=== PATIENT | female | born 1940 | race Caucasian/White ===

== ENCOUNTER 2024-10-18 10:15 | Outpatient (AMB) | payer MEDICARE, OTHER, SELFPAY ==
--- NOTE | 2024-10-18 10:30 | HO.NEPHOV_ITS ---
Vital Signs 10/18/24 10:37 Height 5 ft Weight 167 lb BMI 32.6 BP 140/60 H Blood Pressure Location Lt brachial Position Sitting Pulse 65 Pulse Source Pulse Oximeter Pulse Oximetry (%) 95 Oxygen Delivery Method Room Air Intake Visit Reasons: ENP: CKD STG4/ Conf Webfed Offset Press Operator Required: No Accompanied by: Daughter Allergies atorvastatin [From Lipitor] Allergy (Verified 10/16/24 09:20) Unknown lovastatin [From Mevacor] Allergy (Verified 10/16/24 09:20) Unknown Sulfa (Sulfonamide Antibiotics) Allergy (Verified 10/16/24 09:20) Unknown HPI Comments Details: I had the privilege of seeing Sadaf for transfer of her renal care. 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 She has H/O incomplete emptying of her bladder. Her blood pressure control has b een fair on current medications. She monitors her BP at home. She recently had renal USS which showed bilateral simple appearing renal cysts with slight increase in size of the cyst on the left. Her recent serum creatinine has been 2.1. She denies CAD, CHF, PAD or known YOLANDA. She does not have any urinary symptoms, worsening edema, nausea, vomiting or diarrhea. She feels increasingly tired. There were no other systemic complaints at the time of the office visit. 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 Surgical History H/O thyroidectomy H/O colonoscopy History of knee replacement Family History Mother Malignant tumor of breast Father Heart attack Brother Diabetes Hypertension Lymphoma Social History (Updated 10/18/24 @ 10:32 by Sujatha Sher MA) Alcohol intake: never Patient Tobacco Use Status: Never used Tobacco Review of Systems Const All systems reviewed & are unremarkable except as noted in HPI and below Physical Exam Vital Signs: Last Vital Signs Pulse 65 10/18/24 10:37 BP 140/60 H 10/18/24 10:37 Pulse Ox 95 10/18/24 10:37 Oxygen Delivery Method Room Air 10/18/24 10:37 BMI result Body Mass Index 32.6 Const General: comfortable and no acute distress Orientation/consciousness: patient oriented x3 HEENT Head: Yes normocephalic Mouth: Normal oral and palatal mucosa present Eyes EOM: EOMs intact bilaterally Neck Neck: Yes supple Resp Auscultation: clear to auscultation bilaterally Cardio Jugular venous distension: no JVD Rate: regular rate GI Palpation (GI): Soft to palpation Auscultation: normal bowel sounds General: Yes no CVA tenderness Back/Spine/Pelvis Back: no CVA tenderness Skin General skin exam: no rashes or lesions noted Neuro General: patient oriented x3 and moves all extremities Extrem General: Yes no pedal edema Assessment & Plan Assessment & Plan (1) Essential (primary) hypertension: Code(s): I10 - Essential (primary) hypertension Category: Medical (2) Chronic kidney disease, stage 4 (severe): Code(s): N18.4 - Chronic kidney disease, stage 4 (severe) Category: Medical Plan She currently has a GFR between 25- 30 mls/minute. She thinks her CKD is from hypertension even though she is not sure whether she had kidneys involved from anti phospholipid antibody syndrome. She denies any H/O renal arterial or renal vein thrombosis. She has higher post voidal residual. Her BP needs to be maintained at less than 130/80 mm of Hg. I have started her on Carvedilol. She may be a candidate for SGLT2 i in the future. I have ordered detailed CKD work up for optimization of her medication regimen. She will need a 24 hour urine for creatinine clearance which I plan to arrange with subsequent follow ups. Further management is pending evolving data. Answered her and her daughters questions. Orders: Orders Creatinine 4 Weeks I10 - Essential (primary) hypertension, N18.4 - Chronic kidney disease, stage 4 (severe) Blood Urea Nitrogen 4 Weeks I10 - Essential (primary) hypertension, N18.4 - Chronic kidney disease, stage 4 (severe) Electrolytes 4 Weeks I10 - Essential (primary) hypertension, N18.4 - Chronic kidney disease, stage 4 (severe) Calcium 4 Weeks I10 - Essential (primary) hypertension, N18.4 - Chronic kidney disease, stage 4 (severe) Phosphorus 4 Weeks I10 - Essential (primary) hypertension, N18.4 - Chronic kidney disease, stage 4 (severe) Parathyroid Hormone Intact 4 Weeks I10 - Essential (primary) hypertension, N18.4 - Chronic kidney disease, stage 4 (severe) Immunofixation Pnl, Serum 4 Weeks I10 - Essential (primary) hypertension, N18.4 - Chronic kidney disease, stage 4 (severe) Immunofixation, Random Urine 4 Weeks I10 - Essential (primary) hypertension, N18.4 - Chronic kidney disease, stage 4 (severe) Complement C3 4 Weeks I10 - Essential (primary) hypertension, N18.4 - Chronic kidney disease, stage 4 (severe) Complement C4 4 Weeks I10 - Essential (primary) hypertension, N18.4 - Chronic kidney disease, stage 4 (severe) Proteinase 3 PR3 Antibodies 4 Weeks I10 - Essential (primary) hypertension, N18.4 - Chronic kidney disease, stage 4 (severe) Protein Creatinine Ratio, Ur 4 Weeks I10 - Essential (primary) hypertension, N18.4 - Chronic kidney disease, stage 4 (severe) Myeloperoxidase Antibody 4 Weeks I10 - Essential (primary) hypertension, N18.4 - Chronic kidney disease, stage 4 (severe) Phospholipase A2 Receptor Pnl 4 Weeks I10 - Essential (primary) hypertension, N18.4 - Chronic kidney disease, stage 4 (severe) Medications: New carvedilol must administer with a meal/food 3.125 mg PO BID 60 tabs 3RF Coding Level of Care Code New Pt Level 4 (52695) Diagnoses Essential (primary) hypertension I10 Chronic kidney disease, stage 4 (severe) N18.4
[2024-10-18 10:37] VITALS: BP 140/60; PULSE 65; O2SAT 95; BMI 32.6
--- OUTSIDE RECORDS SUMMARY | 2024-10-18 10:59 | XMS_ITS | Data Portability ---
Author Organization [facility], [address] Address [address] [place] [address] Assessment No assessment recorded. Plan of Treatment Reminders Order Date Submit Date Provider Last Modified By Organization Details Last Modified Time Details Appointments None recorded. Lab None recorded. Referral skidder referral 2022 023 [email or web address] Not available 17:48:09 Procedures None recorded. Surgeries None recorded. Imaging XR, foot, 2 view 2022 023 [facility], [address] [place], [address], 18:09:10 Medication Orders cephalexin 500 mg capsule 2022 023 [id number], [address] [place], [address], 3 09:42:11 Patient TargetsNo targets recorded. Patient InstructionsNo instructions recorded. Reason for Referral Production Consultant Referral for Fore ign body of foot Referring Physician: Arnold Paz, Urgent Care, Encounter Date: 06/12/2023 Results Created Date Observation Date Name Description Value Unit Range Abnormal Flag Note LastModifiedBy Organization Detail LastModifiedTime 06/12/2006/12/2023 XR, foot, 2 view No observ ation record ed. [email or web address] [facility] [address] [place], [address], 06/12/2023 18:21:18 Result Notes None recorded. Problems Name Problem SNOMED Code Status Onset Date Resolution Date Notes Provider Name and Address Organization Details Recorded Time Hyperlipidemia 10295706 Active JYOTI thompson, PA - [facility] 3 16:46:50 Hypertensive disorder 00417013 Active JYOTI thompson, PA - [facility] 3 16:46:58 History of kidney disease 340916977 Active JYOTI thompson PA - [facility] 3 16:47:16 Deep venous thrombosis 093339226 Active JYOTI thompson, PA - [facility] 3 16:48:16 Problem Notes None recorded. Procedures Surgical History Date Name Laterality Status Provider Name and Address Organization Details Recorded Time Knee arthroscopy /surgery completed JYOTI BAR PA - [facility] 06/12/2023 16:47:39 Imaging Results Imaging Date Name Status LastModified by Organiz ation Details LastModified Time 06/12/2023 XR, foot, 2 view [place] [address] [facility] [address] [place] [address], [place], [address], 06/12/2023 18:21:18 Procedure Notes None recorded. Medical Equipment None Reported. Allergies No known drug allergies Medications Name Sig Start Date Stop Date Status Note LastModified by Organization Details LastModified Time amoxicillin 500 mg capsule TAKE 4 CAPSULES BY MOUTH 1 HOUR PRIOR TO DENTAL PROCEDURE 06/12 completed Not Available Not Available Not Available clobetasol 0.05 % topical cream APPLY THIN COAT TO AFFECTED AREA TWICE A DAY active Not Available Not Available No t Available triamcinolo ne acetonide 0.1 % topical cream APPLY A THIN LAYER TO THE AFFECTED AREAS BY TOPICAL ROUTE 2 TIMES PER DAY FOR 2 WEEKS active Not Available Not Available No t Available ciclopirox 8 % topical solution APPLY TO THE AFFECTED AREA(S) TOPICALLY ONCE DAILY PREFERABL Y AT BEDTIME OR 8 HOURS BEFORE WASHING active Not Available Not Available No t Available calcium 500 mg (as calcium carbonate 1,250 mg) tablet TAKE 2 TABLETS BY MOUTH EVERY DAY active Not Available Not Available No t Available amlodipine 10 mg tablet TAKE 1 TABLET BY MOUTH EVERY DAY active Not Available Not Available No t Available cephalexin 500 mg capsule Take 1 capsule 3 times a day by oral route for 10 days. 2022 active Not Available Not Available Not Avai lable warfarin 5 mg tablet TAKE 1 TABLET DIRECTED DEPENDING ON INR RESULT active Not Available Not Available No t Available Unithroid 75 mcg tablet TAKE 1 TABLET BY MOUTH ONCE DAILY active Not Available Not Available No t Available calcitriol 0.25 mcg capsule TAKE 1 CAPSULE BY MOUTH EVERY DAY active Not Available Not Available No t Available ezetimibe 10 mg tablet TAKE 1 TABLET BY MOUTH EVERY DAY active Not Available Not Available No t Available BinaxNOW COVID-19 Ag Self Test kit Use as Directed on the Package 06/12 completed Not Available Not Available Not Available Vitals Date Recorded Body height Body mass index (BMI) Body weight Oxygen saturation Oxygen saturation in Arterial blood by Pulse oximetry Heart rate Respiratory rate Body temperature Systolic blood pressure Diastolic blood pressure Provider Name and Address Organization Details Last Updated DateTime 3 152.4 cm 31.2 kg/m2 09089.7 8 g 98 % 98 % 78 /min 18 /min 98.1 [degF] 130 mm[Hg] 73 mm[Hg] JYOTI BAR PA - [facility] 16:50:17 Social History Question Answer Notes LastModified by [facility] ion Details LastModified Time Tobacco Smoking Status Never Smoker JYOTI thompson PA [facility] 06/12/2023 16:47:27 What Is Your Level Of Alcohol Consumption? None Information not available 06/12/2023 Do You Use Any Illicit Or Recreational Drugs? No Information not available 06/12/2023 Do You Or Have You Ever Used Any Other Forms Of Tobacco Or Nicotine? No Information not available 06/12/2023 Sex: Unknown Functional Status None recorded. Mental Status None recorded. Family History Nothing Reported. Medical History No medical history recorded. Gynecological HistoryNo gynecological history recorded. Obstetrics History GPAL:G 0 P 0 0 0 0 Immunizations Vaccine Type Date Status Note Provider Nam e and Address Organization Details Recorded Time zoster recombinant 9 completed JYOTI thompson PA - [facility] 06/12/2023 16:47:48 zoster recombinant 9 completed JYOTI thompson PA [facility] 06/12/2023 16:47:48 Influenza, high-dose, quadrivalent, PF 1 completed JYOTI MINEO null, PA - [facility] 06/12/2023 16:47:48 Influenza, high-dose, quadrivalent, PF 0 completed JYOTI MINEO null, PA - [facility] 06/12/2023 16:47:48 Influenza, high-dose, quadrivalent, PF 2 completed JYOTI MINEO null, PA - [facility] 06/12/2023 16:47:48 Influenza, high-dose, quadrivalent, PF 1 completed JYOTI MINEO null, PA - [facility] 06/12/2023 16:47:48 COVID-19, mRNA, LNP-S, PF, 30 mcg/0.3 mL dose 1 completed JYOTI MINEO null, PA - [facility] 06/12/2023 16:47:48 COVID-19, mRNA, LNP-S, PF, 30 mcg/0.3 mL dose 1 completed JYOTI MINEO null, PA - [facility] 06/12/2023 16:47:48 COVID-19, mRNA, LNP-S, PF, 30 mcg/0.3 mL dose 1 completed JYOTI MINEO null, PA - [facility] 06/12/2023 16:47:48 COVID-19, mRNA, LNP-S, PF, 30 mcg/0.3 mL dose, denny-sucrose 2 completed JYOTI MINEO null, PA - [facility] 06/12/2023 16:47:48 COVID-19, mRNA, LNP-S, bivalent, PF, 50 mcg/0.5 mL or 25mcg/0.25 mL dose 2 completed JYOTI MINEO null, PA - [facility] 06/12/2023 16:47:48 COVID-19, mRNA, LNP-S, bivalent, PF, 30 mcg/0.3 mL dose 3 completed JYOTI MINEO null, PA - [facility] 06/12/2023 16:47:48 pneumococcal polysaccharide PPV23 7 completed JYOTI MINEO null, PA - [facility] 06/12/2023 16:47:48 Td(adult) unspecified formulation 5 completed JYOTI MINEO null, PA - [facility] 06/12/2023 16:47:48 Pneumococcal conjugate PCV 13 5 completed JYOTI MINEO null, PA - [facility] 06/12/2023 16:47:48 zoster live 1 completed JYOTI MINEO null, PA - [facility] 06/12/2023 16:47:48 Influenza, high-dose, trivalent, PF 5 completed JYOTI MINEO null, PA - [facility] 06/12/2023 16:47:48 Influenza, high-dose, trivalent, PF 9 completed JYOTI MINEO null, PA - [facility] 06/12/2023 16:47:48 Influenza, high-dose, trivalent, PF 6 completed JYOTI MINEO null, PA - [facility] 06/12/2023 16:47:48 Influenza, high-dose, trivalent, PF 4 completed JYOTI MINEO null, PA - [facility] 06/12/2023 16:47:48 Influenza, high-dose, trivalent, PF 8 completed JYOTI MINEO null, PA - [facility] 06/12/2023 16:47:48 Influenza, split virus, trivalent, preservative 2 completed JYOTI MINEO null, PA - [facility] 06/12/2023 16:47:48 Td (adult), 5 Lf tetanus toxoid, preservative free, adsorbed 4 completed JYOTI MINEO null, PA - [facility] 06/12/2023 16:47:48 Td (adult), 2 Lf tetanus toxoid, preservative free, adsorbed 2 completed JYOTI MINEO null, PA - [facility] 06/12/2023 16:47:48 Past Encounters Encounter ID Performer Location Encounter Start Date Encounter Closed Date Diagnosis/Indication Diagnosis SNOMED-CT Code Diagnosis ICD10 Code Diagnosis Note [id number] [address] [place] [address] 11/16/2020 12:01:30 11/16/2020 13:27:47 [id number] [place] [address] 08/20/2018 14:36:01 08/20/2018 15:14:12 [id number] [place] [address] 04/26/2019 12:53:30 04/26/2019 13:37:59 [id number] [address] [place] [address] 04/13/2019 10:16:51 04/13/2019 10:40:54 [id number] [address] [place] [address] 08/14/2018 15:14:45 08/14/2018 16:10:00 [id number] Arnold Paz MD [address] [place] [address] 06/12/2023 16:24:12 06/12/2023 17:48:09 Pain in right foot [id number] 76363 M79.671 pain on palpation over the lateral plantar forefootCa n visualize an FB on AP of foot but not on lateral, located medial to head of the 5th MTBased on the exam, Patient on Coumadin and inability to localize, i will have to refer to Podiatry or she can got to ER. HIgher risk for BleedingSo ak foot warm water Foreign body of foot 281 777971 Z18.9 unable to palpate or visualize, patient on coumadin and believe this may need more complicate d procedure Health Concerns Section Related Observation LastModified by Organization Detai ls LastModified Time None Recorded Concern Status LastModified by Organization Details LastModified Time None Recorded Advance Directives Directive None Recorded Payers Encounter Date Sequence Insurance Name Policy Number Policy Willard Covered Member ID Willard Member ID Guarantor Name 08/20/2018 1 [place] [employer] Signjason Santiagoner [id number] Signjason Reese 08/20/2018 2 [facility] Signjason Santiagoner [id number] Signjason Reese 04/13/2019 1 [place] [facility] Signia R Reese [id number] Signjason Reese 04/13/2019 2 [facility] Signjason Santiagoner [id number] Signjason Reese 04/26/2019 1 [place] [facility] Signia R Reese [id number] Signjason Reese 04/26/2019 2 [facility] Signia Latia SantiagoReese [id number] Signia Reese 11/16/2020 1 [place] [facility] Signia Latia SantiagoReese [id number] Signjason Reese 11/16/2020 2 [facility] Signjason Santiagoner [id number] Signjason Reese 06/12/2023 1 [place] [facility] Signjason Santiagoner [id number] Signjason Reese 06/12/2023 2 [facility] Signjason Santiagoner [id number] Signjason Reese Notes Date Note Type Note Provider Name and Address Organization Details Recorded Time 3 text/html Foot / AnkleReported bypatient.source of patient informationInformation obtained from patient; Patient arrived at Urgent Care ambulatory Location:foot; right Probleminjury Severity:moderate Duration:1 days Associated Symptoms:no weakness; no numbness; no tingling; no swelling; no redness; no warmth; no ecchymosis Aggravating factors:walkingNotes:Earli er there was glass on the floor which she cleaned up. Pain stared hours later and was not sudden onset. Gradual increase. Assumming glass in foot. Pain when walks Arnold Paz MD [address] [place], [address], PA - [facility] 06/14/2023 09:44:34 OBGyn Episode No OBEpisode recorded.
--- OUTSIDE RECORDS SUMMARY | 2024-10-18 11:00 | XMS_ITS | Encounter Summary ---
Author Organization [facility] Address [address] [place] [address] Phone Care Team Providers Care Tax Collector Name Role Phone Maricruz Ybarra MD Primary Care Provider [phone] Encounter Details Date Type Department Care Team (Late st Contact Info) Description 10/27/2020 Orders Only [facility] [address] [place] [phone] Provider, MD Blaze [address] [place] [address] Social History Tobacco Use Types Packs/Day Years Used Date Smoking Tobacco: Never Alcohol Use Standard Drinks/Week Comments No 0 (1 standard drink = 0.6 oz pur e alcohol) Comments Unknown Sex and Gender Information Value Date Recorded Sex Assigned at Not on file Legal Sex Female 5:03 PM EST Gender Identity Not on file Sexual Orientation Not on file documented as of this encounter Plan of Treatment Upcoming Encounters Date Type Department Care Team (Late st Contact Info) Description 02/04/2025 1:30 PM EDT Office [facility] [address] [place] [address] Rios Javed MD [address] [place] [address] [place] [address] documented as of this encounter Procedures Procedure Name Priority Date/Time Associated Diagnosis Comments EXT RESULT ENTRY Routine 10/27/2020 EXT RESULT ENTRY Routine 10/27/2020 documented in this encounter Results * EXT RESULT ENTRY (10/27/2020) us Historical Provider LAB BLOOD ORDERABLES Letty l Result * EXT RESULT ENTRY (10/27/2020) us Historical Provider LAB BLOOD ORDERABLES Letty l Result documented in this encounter Visit Diagnoses Not on filedocumented in this encounter Care Teams Tax Collector Relationship Specialty Start Date End Date Maricruz Ybarra MD [address] [place] [phone] PCP - General Family Medicine 01/20/22 documented as of this encounter
--- OUTSIDE RECORDS SUMMARY | 2024-10-18 11:01 | XMS_ITS | Encounter Summary ---
Author Organization [facility] Address [address] [address] Phone Care Team Providers Care Core Measures Abstractor Name Role Phone Maricruz Ybarra MD Primary Care Provider [phone] Encounter Details Date Type Department Care Team (Late st Contact Info) Description 08/11/2024 Office Communication [facility]. [address] [phone] Bar Lamas MD [address] [phone] Social History Tobacco Use Types Packs/Day Years [...] on file documented as of this encounter Miscellaneous Notes * Telephone Encounter - Lilibeth Werner - 08/12/2024 7:03 AM EST It is noted that the patient moved out of the area * Telephone Encounter - Bar Lamas MD - 08/11/2024 3:07 PM EST PLs call and ask her why she cancelled her OV with me documented in this encounter Plan of Treatment Upcoming Encounters Date Type Department Care Team (Late st Contact Info) Description 02/04/2025 1:30 PM EDT [facility] [address] [place] [address] Rios Javed MD [address] [facility] [place] [address] documented as of this encounter Visit Diagnoses Not on filedocumented in this encounter Care Teams Core Measures Abstractor Relationship Specialty Start Date End Date Maricruz Ybarra MD [address] [place] [phone] PCP - General Family Medicine 01/20/22 documented as of this encounter
--- OUTSIDE RECORDS SUMMARY | 2024-10-18 11:01 | XMS_ITS | Encounter Summary ---
Author Organization [facility], Address [address] [place] [address] Phone Care Team Providers Care Union Steward Name Role Phone Maricruz Ybarra MD Primary Care Provider [phone] Encounter Details Date Type Department Care Team (Late st Contact Info) Description 05/29/2024 Documentation Only [facility], - [address] [place] [address] Janice Light [address] [place] [address] Social History Tobacco Use Types Packs/Day Years [...] Visit [facility] [address] [place] [address] Rios Javed MD [address] [facility] [place] [address] documented as of this encounter Visit Diagnoses Not on filedocumented in this encounter Care Teams Union Steward Relationship Specialty Start Date End Date Maricruz Ybarra MD [address] [place] [phone] PCP - General Family Medicine 01/20/22 documented as of this encounter
--- OUTSIDE RECORDS SUMMARY | 2024-10-18 11:01 | XMS_ITS | Encounter Summary ---
Author Organization [facility] Address [address] [place] [address] Phone Care Team Providers Care Punch Hand Name Role Phone Maricruz Ybarra MD Primary Care Provider [phone] Encounter Details Date Type Department Care Team (Late st Contact Info) Description 08/06/2024 Documentation Only [facility] [place], [address] [facility] [place] [address] Isabel Nguyen [address] [place] [address] Social History Tobacco Use Types [...] Visit [facility] [address] [place] [phone] Rios Javed MD [address] [place] [address] documented as of this encounter Visit Diagnoses Not on filedocumented in this encounter Care Teams Punch Hand Relationship Specialty Start Date End Date Maricruz Ybarra MD [address] [place] [phone] PCP - General Family Medicine 01/20/22 documented as of this encounter
--- OUTSIDE RECORDS SUMMARY | 2024-10-18 11:01 | XMS_ITS | Clinical Summary ---
Author Organization [facility], Address [address] [address] [place] [address] Phone Care Team Providers Care Parquet Floor Layer'S Helper Name Role Phone Maricruz Ybarra MD Primary Care Provider [phone] Allergies Active Allergy Reactions Criticality Noted Date Comments Simvastatin Other (see comments) 05/09/2016 Sulfa Antibiotics Other (see comments) 02/23/20 21 Medications warfarin (COUMADIN) 1 MG tablet 1 tablet 5 mg 4/days/wk 4mg 3 days/wk Active ezetimibe (ZETIA) 10 MG tablet Take 1 tablet by mouth 1 (one) time each day in the evening Active cholecalciferol (VITAMIN D-3) 25 MCG (1000 UT) capsule Take 2 capsules by mouth 1 (one) time each day Active calcium carbonate (TUMS) 500 MG chewable tablet Chew 2 tablets 1 (one) time each day Active amLODIPine (NORVASC) 10 MG tablet Take 10 mg by mouth 1 (one) time each day 6 Active Magnesium 250 MG tablet Take 2 tablets by mouth 1 (one) time each day Active calcitriol (ROCALTROL) 0.25 MCG capsule Take 0.25 mcg by mouth 1 (one) time each day Active amoxicillin (AMOXIL) 500 MG capsule TAKE 4 CAPSULES BY MOUTH 1 HOUR PRIOR TO DENTAL PROCEDURE 3 Active Unithroid 75 MCG tablet Take 75 mcg by mouth 1 (one) time each day 3 Active warfarin (COUMADIN) 5 MG tablet TAKE 1 TABLET DIRECTED DEPENDING ON INR RESULT 3 Active losartan (Cozaar) 25 MG tablet Take 1 tablet (25 mg total) by mouth 1 (one) time each day 90 tablet 3 4 11/16/19 25 Active lisinopril 2.5 MG tablet Take 2.5 mg by mouth 1 (one) time each day 4 Active Active Problems Problem Noted Date Diagnosed Date Hyperlipidemia 11/03/2021 Chronic kidney disease, stage 4 (severe) 022 Renal osteodystrophy 03/18/2021 Nephrolithiasis 03/18/2021 Anemia 02/22/2021 Hypertensive renal disease 02/22/2021 Hypertension 01/09/2018 Overview (02/22/2021): Last Assessment & Plan: We will treated now this may be the cause in the past of her renal dysfunction she says that she is between stage III and IV kidney disease Resolved Problems Problem Noted Date Diagnosed Date Resolved Date Pure hypercholesterolemia 09/18/2018 Overview (02/22/2021): Last Assessment & Plan: As mentioned this is a big problem for her on Zetia her LDL still 176 we are going to give her 1 of the new injectable medications but will check with the pharmacy to see which one is offered Deep venous thrombosis 01/09/201803/08 Overview (02/22/2021): Last Assessment & Plan: As mentioned 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 Hypothyroidism 01/09/2018 03/08/2021 Overview (02/22/2021): Last Assessment & Plan: Being overtreated at the present time she is going to get her dose reduced slightly Palpitations 01/09/2018 03/08/2021 Overview (02/22/2021): Last Assessment & Plan: She is not complaining of palpitations at the present time Encounters Date Type Department Care Team Description 08/11/2024 Office Communication [facility] [address] [facility] [address] [place] [phone] Bar Lamas MD 08/06/2024 1:30 PM EST Office Visit [facility] - [address] [place] [address] Rios Javed MD Chronic kidney disease, stage 4 (severe) (HCC) (Primary Dx); Hypertension; Renal osteodystrophy 08/06/2024 Documentation Only [facility], [address] [place] [phone] Isabel Nguyen 08/02/2024 Orders Only [facility] [address] [place] [phone] Bar Lamas MD from Last 3 Months Family History Medical History Relation Comments Heart disease Father Cancer Mother breast CA Hypertension Mother Kidney disease Mother Relation Status Comments Father Mother Social History Tobacco Use Types Packs/Day Years Used Date Smoking Tobacco: Never Smokeless Tobacco: Never Tobacco Cessation:Counseling Given: No Alcohol Use Standard Drinks/Week Comments No 0 (1 standard drink = 0.6 oz pur e alcohol) Comments Unknown Sex and Gender Information Value Date Recorded Sex Assigned at Not on file Legal Sex Female 5:03 PM EST Gender Identity Not on file Sexual Orientation Not on file Last Filed Vital Signs Vital Sign Reading Time Taken Comments Blood Pressure 138/64 11/16/2023 1:36 PM EDT Pulse 59 11/16/2023 1:36 PM EDT Temperature - - Respiratory Rate - - Oxygen Saturation 99% 11/16/2023 1:36 PM EDT Inhaled Oxygen Concentration - - Weight 73.5 kg (162 lb) 11/16/2023 1:36 PM EDT Height 160 cm (5' 3 ) 09/17/2020 12:00 PM EST Body Mass Index 28.7 09/17/2020 12:00 PM EST Plan of Treatment Upcoming Encounters Date Type Department Care Team (Late st Contact Info) Description 02/04/2025 1:30 PM EDT Office Visit [facility] - [address] [place] [address] Rios Javed MD [address] [place] [address] Health Maintenance Due Date Last Done Comments Influenza Vaccine (#1) 2024 9, 08/03/2018, 06/28/2016, Additional history exists Pneumococcal Vaccine: 65+ Years Completed 01/08/2015, 03/12/2007 Hepatitis B Vaccine Aged Out No longe r eligible based on patient's age to complete this topic Procedures Procedure Name Priority Date/Time Associated Diagnosis Comments SPECIMEN STATUS REPORT Routine 08/02/2024 4:44 PM EST RENAL FUNCTION PANEL Routine 08/02/2024 4:44 PM EST CBC AND DIFFERENTIAL Routine 08/02/2024 4:44 PM EST from Last 3 Months Results * SPECIMEN STATUS REPORT (08/02/2024 4:44 PM EST) Specimen Status Comment [facility] robin Montesinos Comment: Ambig Abbrev RP10 Default Ambig Abbrev RP10 Default A hand-written panel/profile was received from your office. In accordance with the [facility] Ambiguous Test Code Policy dated February 2003, we have completed your order by using the closest currently or formerly recognized AMA panel. ??We have assigned Renal Panel (10), Test Code #[id number] to this request. ??If this is not the testing you wished to receive on this specimen, please contact the [facility] Client Inquiry/Technical Services Department to clarify the test order. ??We appreciate your business. 08/02/2024 4:44 PM EST 08/02/2024 us Bar Lamas MD LAB BLOOD ORDERABLES Final Re sult [facility] [address] [place] [address] * (ABNORMAL) CBC and Differential (08/02/2024 4:44 PM EST) WBC 8.4 3.4 - 10.8 x10E3/uL [facility] RBC 3.61(L) 3.77 - 5.28 x10E6/uL [facility] Hemoglobin 11.5 11.1 - 15.9 g/dL [facility] Hematocrit 34.9 34.0 - 46.6 % [facility] MCV 97 79 - 97 fL [facility] MCH 31.9 26.6 - 33.0 pg [facility] MCHC 33.0 31.5 - 35.7 g/dL [facility] RDW 12.4 11.7 - 15.4 % [facility] Platelets 188 150 - 450 x10E3/uL [facility] Neutrophils Relative 66 Not Estab. % [facility] Lymphocytes Relative 22 Not Estab. % [facility] Monocytes 8 Not Estab. % [facility] Eosinophils Relative 3 Not Estab. % [facility] Basophils Relative 1 Not Estab. % [facility] Neutrophils Absolute 5.6 1.4 - 7.0 x10E3/uL [facility] Lymphocytes Absolute 1.9 0.7 - 3.1 x10E3/uL [facility] Monocytes Absolute 0.7 0.1 - 0.9 x10E3/uL [facility] Eosinophils Absolute 0.2 0.0 - 0.4 x10E3/uL [facility] Basophils Absolute 0.1 0.0 - 0.2 x10E3/uL [facility] Immature Granulocytes 0 Not Estab. % [facility] Immature Grans (Absolute) 0.0 0.0 - 0.1 x10E3/uL [facility] 08/02/2024 4:44 PM EST 08/02/2024 Narrative [facility] - 08/07/2024 8:05 AM EST Specimen Comment: A courtesy copy of this report has been sent to [phone] us Bar Lamas MD LAB BLOOD ORDERABLES Final Re sult [facility] [address] [place] [address] * (ABNORMAL) Renal Function Panel (08/02/2024 4:44 PM EST) Glucose 94 70 - 99 mg/dL [facility] BUN 51(H) 8 - 27 mg/dL [facility] Creatinine 1.86(H) 0.57 - 1.00 mg/dL [facility] eGFR CKD-EPI CR 2020 26(L) >59 mL/min/1.7 3 [facility] BUN/Creatinine Ratio 27 12 - 28 [facility] Sodium 138 134 - 144 mmol/L [facility] Chloride 97 96 - 106 mmol/L [facility] Bicarbonate (CO2) 25 20 - 29 mmol/L [facility] Phosphorus 3.6 3.0 - 4.3 mg/dL [facility] Albumin 4.3 3.7 - 4.7 g/dL [facility] Potassium 4.9 3.5 - 5.2 mmol/L [facility] Calcium 10.4(H) 8.7 - 10.3 mg/dL [facility] Comment:Verified by repeat analysis 08/02/2024 4:44 PM EST 08/02/2024 us Bar Lamas MD LAB BLOOD ORDERABLES Final Re sult [facility] [address] [place] [phone] from Last 3 Months Insurance [facility] MEDICARE [facility] MEDICARE Care Teams Parquet Floor Layer'S Helper Relationship Specialty Start Date End Date Maricruz Ybarra MD [address] [place] [phone] PCP - General Family Medicine 01/20/22
== END 2024-10-18 11:37 | disposition home or self-care (01) ==
PROVIDERS: PCP Family Medicine; Referring Provider Family Medicine; Visit Provider Internal Medicine Nephrology
DX: I12.9 Hypertensive chronic kidney disease with stage 1 through stage 4 chronic kidney disease, or unspecified chronic kidney disease (principal); N18.4 Chronic kidney disease, stage 4 (severe)
CPT/HCPCS: 99204

== ENCOUNTER → 2024-10-18 10:15 | Outpatient (BNVA) | payer MEDICARE, OTHER, SELFPAY | PROVIDERS: PCP Family Medicine; Referring Provider Family Medicine; Visit Provider Internal Medicine Nephrology | DX: I12.9 Hypertensive chronic kidney disease with stage 1 through stage 4 chronic kidney disease, or unspecified chronic kidney disease (principal); N18.4 Chronic kidney disease, stage 4 (severe) | CPT/HCPCS: 99202 ==

== ENCOUNTER 2024-11-14 13:29 | Outpatient (REF) | payer MEDICARE, OTHER, SELFPAY ==
[2024-11-14 14:46] LABS: Anion Gap 11 (12-20); Blood Urea Nitrogen 38 mg/dL (9-16); Calcium 10.4 mg/dL (8.4-10.2); Carbon Dioxide 30 mmol/L (22-29); Chloride 104 mmol/L (96-108); Estimated Glomerular Filt Rate 29; Phosphorus 3.6 mg/dL (2.7-4.5); Potassium 4.1 mmol/L (3.3-5.1); Sodium 141 mmol/L (135-145)
[2024-11-14 15:19] LABS: Parathyroid Hormone Intact < 4.0 pg/mL (8.7-77.1)
[2024-11-14 16:26] LABS: Creatinine Urine 31.49 mg/dL; Total Protein Urine Random < 7 mg/dL (<12)
[2024-11-16 05:33] LABS: Complement C3 129 mg/dL
[2024-11-19 12:09] LABS: IgA 62 mg/dL (70-320); IgG 894 mg/dL (600-1540); IgM 74 mg/dL (50-300)
[2024-11-19 13:59] LABS: Myeloperoxidase Antibody <1.0 AI; Proteinase 3 PR3 Antibodies <1.0 AI
[2024-11-24 03:24] LABS: Phospholipase A2 IgG ELISA <4 RU/mL; Phospholipase A2 IgG IFA NEGATIVE (NEGATIVE)
== END 2024-11-14 13:30 | disposition home or self-care (01) ==
LOC: HO.LAB 13:29
PROVIDERS: PCP Family Medicine; Visit Provider Internal Medicine Nephrology
DX: I10 Essential (primary) hypertension (principal); N18.4 Chronic kidney disease, stage 4 (severe)
CPT/HCPCS: 80051; 82310; 82565; 82570; 82784; 83520; 83970; 84100; 84156; 84520; 86021; 86160; 86255; 86334; 86335

== ENCOUNTER 2024-11-22 11:04 | Outpatient (AMB) | payer MEDICARE, OTHER, SELFPAY ==
--- NOTE | 2024-11-22 11:25 | HO.NEPHOV_ITS ---
Vital Signs 11/22/24 11:28 Height 5 ft Weight 167 lb 6 oz BMI 32.7 BP 140/60 H Blood Pressure Location Rt brachial Position Sitting Pulse 53 Pulse Source Pulse Oximeter Pulse Oximetry (%) 98 Oxygen Delivery Method Room Air Intake Visit Reasons: CKD-Conf Photo Lab Specialist Required: No Accompanied by: Daughter Allergies atorvastatin [From Lipitor] Allergy (Verified 11/22/24 11:28) Unknown lovastatin [From Mevacor] Allergy (Verified 11/22/24 11:28) Unknown Sulfa (Sulfonamide Antibiotics) Allergy (Verified 11/22/24 11:28) Unknown HPI Comments Details: I had the privilege of seeing Signia for follow up for CKD. 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 She has H/O incomplete emptying of her bladder. Her blood pressure control has been fair on current medications. She monitors her BP at home. She recently had renal USS which showed bilateral simple appearing renal cysts with slight increase in size of the cyst on the left. Her recent serum creatinine has improved . She denies CAD, CHF, PAD or known YOLANDA. She does not have any urinary symptoms, worsening edema, nausea, vomiting or diarrhea. There were no other systemic complaints at the time of the office visit. 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 Surgical History H/O thyroidectomy H/O colonoscopy History of knee replacement Family History Mother Malignant tumor of breast Father Heart attack Brother Diabetes Hypertension Lymphoma Social History Alcohol intake: never Patient Tobacco Use Status: Never used Tobacco Review of Systems Const All systems reviewed & are unremarkable except as noted in HPI and below Physical Exam Vital Signs: Last Vital Signs Pulse 53 11/22/24 11:28 BP 140/60 H 11/22/24 11:28 Pulse Ox 98 11/22/24 11:28 Oxygen Delivery Method Room Air 11/22/24 11:28 BMI result Body Mass Index 32.7 Const General: comfortable and no acute distress Orientation/consciousness: patient oriented x3 HEENT Head: Yes normocephalic Mouth: Normal oral and palatal mucosa present Eyes EOM: EOMs intact bilaterally Neck Neck: Yes supple Resp Auscultation: clear to auscultation bilaterally Cardio Jugular venous distension: no JVD Rate: regular rate GI Palpation (GI): Soft to palpation Auscultation: normal bowel sounds General: Yes no CVA tenderness Back/Spine/Pelvis Back: no CVA tenderness Skin General skin exam: no rashes or lesions noted Neuro General: patient oriented x3 and moves all extremities Extrem General: Yes no pedal edema Results Reviewed Nephrology Results: Sodium 141 mmol/L (135-145) 11/14/24 Potassium 4.1 mmol/L (3.3-5.1) 11/14/24 Chloride 104 mmol/L (96-108) 11/14/24 Carbon Dioxide 30 mmol/L (22-29) H 11/14/24 BUN 38 mg/dL (9-16) H 11/14/24 Creatinine 1.66 mg/dL (0.5-1.4) H 11/14/24 Calcium 10.4 mg/dL (8.4-10.2) H 11/14/24 Phosphorus 3.6 mg/dL (2.7-4.5) 11/14/24 PTH Intact < 4.0 pg/mL (8.7-77.1) L 11/14/24 Urine Creatinine 31.49 mg/dL 11/14/24 Protein/Creatinin Ratio TNP 11/14/24 Assessment & Plan Assessment & Plan (1) Chronic kidney disease, stage 4 (severe): Code(s): N18.4 - Chronic kidney disease, stage 4 (severe) Category: Medical (2) Essential (primary) hypertension: Code(s): I10 - Essential (primary) hypertension Category: Medical Plan She had a GFR between 25- 30 mls/minute which has improved now. She has CKD is f rom hypertension even though she is not sure whether she had kidneys involved from anti phospholipid antibody syndrome. She denies any H/O renal arterial or renal vein thrombosis. She has higher post voidal residual. Her BP needs to be maintained at less than 130/80 mm of Hg. I increased her Amlodipine to 7.5 mg daily. She may be a candidate for SGLT2 i in the future. I also discontinued her calcitriol. She will need a 24 hour urine for creatinine clearance which I plan to arrange with subsequent follow ups. Further management is pending evolving data. Answered her and her daughters questions. Orders: Orders Blood Urea Nitrogen 4 Months I10 - Essential (primary) hypertension, N18.4 - Chronic kidney disease, stage 4 (severe) Electrolytes 4 Months I10 - Essential (primary) hypertension, N18.4 - Chronic kidney disease, stage 4 (severe) Calcium 4 Months I10 - Essential (primary) hypertension, N18.4 - Chronic kidney disease, stage 4 (severe) Creatinine 4 Months I10 - Essential (primary) hypertension, N18.4 - Chronic kidney disease, stage 4 (severe) Medications: Changed From amlodipine 7.5 mg PO DAILY To amlodipine 7.5 mg (1.5 x 5 mg) PO DAILY 90 days 135 tabs 3RF Coding Level of Care Code Est Pt Level 4 (00953) Diagnoses Chronic kidney disease, stage 4 (severe) N18.4 Essential (primary) hypertension I10
[2024-11-22 11:28] VITALS: BP 140/60; PULSE 53; O2SAT 98; BMI 32.7
== END 2024-11-22 11:58 | disposition home or self-care (01) ==
LOC: HO.HKA 11:04
PROVIDERS: PCP Family Medicine; Visit Provider Internal Medicine Nephrology
DX: I12.9 Hypertensive chronic kidney disease with stage 1 through stage 4 chronic kidney disease, or unspecified chronic kidney disease (principal); N18.4 Chronic kidney disease, stage 4 (severe)
CPT/HCPCS: 99214

== ENCOUNTER → 2024-11-22 11:04 | Outpatient (BNVA) | payer MEDICARE, OTHER, SELFPAY | PROVIDERS: PCP Family Medicine; Visit Provider Internal Medicine Nephrology | DX: I12.9 Hypertensive chronic kidney disease with stage 1 through stage 4 chronic kidney disease, or unspecified chronic kidney disease (principal); N18.4 Chronic kidney disease, stage 4 (severe) | CPT/HCPCS: 99212 ==

== ENCOUNTER 2025-03-21 08:40 | Outpatient (REF) | payer MEDICARE, OTHER, SELFPAY ==
--- OUTSIDE RECORDS SUMMARY | 2025-03-21 08:52 | XMS_ITS | Data Portability ---
Author Organization [facility] [address] Address [address] [place] [address] Assessment No assessment recorded. Plan of Treatment Reminders Order Date Submit Date Provider Last Modified By Organization Details Last Modified Time Details Appointments None recorded. Lab None recorded. Referral cement sprayer helper referral 2022 023 [email or web address] Not available 17:48:09 Procedures None recorded. Surgeries None recorded. Imaging XR, foot, 2 view 2022 023 [facility], [address] [place], [address], 18:09:10 Medication Orders cephalexin 500 mg capsule 2022 023 [id number], [address] [place], [address], 09:42:11 Patient TargetsNo targets recorded. Patient InstructionsNo instructions recorded. Reason for Referral Marketing Services Coordinator Referral for Fore ign body of foot Referring Physician: Arnold Paz, Urgent Care, Encounter Date: 06/12/2023 Results Created Date Observation Date Name Description Value Unit Range Abnormal Flag Note LastModifiedBy Organization Detail LastModifiedTime 06/12/2006/12/2023 XR, foot, 2 view No observ ation record ed. [email or web address] People [facility] [address] [place], [address], 06/12/2023 18:21:18 Result Notes None recorded. Problems Name Problem SNOMED Code Status Onset Date Resolution Date Notes Provider Name and Address Organization Details Recorded Time Hyperlipidemia 59732095 Active JYOTI thompson, [place] - [facility] 3 16:46:50 Hypertensive disorder 21177626 Active JYOTI thompson, PA - [facility] 3 16:46:58 History of kidney disease 057402251 Active JYOTI thompson PA - [facility] 3 16:47:16 Deep venous thrombosis 878691894 Active JYOTI thompson, PA - [facility] 3 16:48:16 Problem Notes None recorded. Procedures Surgical History Date Name Laterality Status Provider Name and Address Organization Details Recorded Time Knee arthroscopy /surgery completed JYOTI BAR PA - [facility] 06/12/2023 16:47:39 Imaging Results None recorded. Procedure Notes None recorded. Medical Equipment None [...] Heart rate Respiratory rate Body temperature Systolic And Diastolic Provider Name and Address Organization Details Last Updated DateTime 3 152.4 cm 31.2 kg/m2 81064.7 8 g 98 % 98 % 78 /min 18 /min 98.1 [degF] 130/73 mm[Hg] JYOTI MINEO PA - [facility] 3 16:50:17 Social History None recorded. Functional Status Question Answer Note LastModified by Organizat ion Details LastModified Time Do you use any illicit or recreational drugs? No Information not available 06/12/2023 Do you or have you ever used any other forms of tobacco or nicotine? No Information not available 06/12/2023 What is your level of alcohol consumption? None Information not available 06/12/2023 Mental Status None recorded. Family History Nothing Reported. Medical History No medical history recorded. Gynecological HistoryNo gynecological history recorded. Obstetrics History GPAL:G 0 P 0 0 0 0 Immunizations Vaccine Type Date Status Note Provider Nam e and Address Organization Details Recorded Time zoster recombinant 9 completed JYOTI MINEO null, PA - [facility] 06/12/2023 16:47:48 zoster recombinant 9 completed JYOTI MINEO null, PA - [...] SNOMED-CT Code Diagnosis ICD10 Code Diagnosis Note [id number] [address] [place] [address] 11/16/2020 12:01:30 11/16/2020 13:27:47 [id number] _[address] [place] [address] 08/20/2018 14:36:01 08/20/2018 15:14:12 [id number] 20999[address] [place] [address] 04/26/2019 12:53:30 04/26/2019 13:37:59 [id number] 20999[address] [place] [address] 04/13/2019 10:16:51 04/13/2019 10:40:54 [id number] [address] [place] [phone] 08/14/2018 15:14:45 08/14/2018 16:10:00 [id number] Arnold Paz MD [address] [place] [address] 06/12/2023 16:24:12 06/12/2023 17:48:09 Pain in right foot 2488011121 88604 M79.671 pain on palpation over the lateral [...] warm water Foreign body of foot 281 147654 Z18.9 unable to palpate or visualize, patient on coumadin and believe this may need more complicate d procedure Health Concerns Section Related Observation LastModified by Organization Detai ls LastModified Time None Recorded Concern Status LastModified by Organization Details LastModified Time None Recorded Advance Directives Directive None Recorded Payers Insurance Date Sequence Insurance Name Policy Number Policy Willard Covered Member ID Willard Member ID Guarantor Name 06/12/2023 1 [place]ARE [place]: [employer] Sadaf Reese [id number] Sadaf Reese 06/12/2023 2 [facility] Sadaf Reese [id number] Sadaf Reese Notes Date Note Type Note Provider Name and Address Organization Details Recorded Time 3 text/html Foot / AnkleReported by PatientHPIFor source of patient information, patient reportsinformation obtained from patientandpatient arrived at urgent care ambulatory. For location, patient reportsfootandright. For problem, patient reportsinjury. For severity, patient reportsmoderate. For duration, patient reports1 days. For associated symptoms, patient reportsno weakness,no numbness,no tingling,no swelling,no redness,no warmth, andno ecchymosis. For aggravating factors, patient reportswalking.Earlier there was glass on the floor which she cleaned up. Pain stared hours later and was not sudden onset. Gradual increase. Assumming glass in foot. Pain when walks Arnold Paz MD [address] [place], [address], PA - [facility] 06/14/2023 09:44:34 OBGyn Episode No OBEpisode recorded.
--- OUTSIDE RECORDS SUMMARY | 2025-03-21 08:52 | XMS_ITS | Encounter Summary ---
Author Organization [facility] Address [address] [place] [address] Phone Care Team Providers Care Complaint Investigations Officer Name Role Phone Jamie Ma MD Primary Care Provider Encounter Details Date Type Department Care Team (Latest Contact Info) Description 05/31/2024 Transcribe Orders Virtual Department [address] [place] [address] Farhan Olmos MD [address] [place] [address] [email or web address] Asymptomatic menopausal state (Primary Dx) Social History Tobacco Use Types Packs/Day Years [...] Answer Date Recorded No 01/23/2023 No 01/23/2023 No 01/23/2023 Reliable internet access at home? Not on file 01/23/2023 Device with a working camera? Not on file Comments Unknown Sex and Gender Information Value Date Recorded Sex Assigned at Not on file Legal Sex Female 12:35 PM EDT Gender Identity Not on file Sexual Orientation Not on file documented as of this encounter Plan of Treatment Upcoming Encounters Date Type Department Care Team ([facility] Contact Info) Description 03/30/2025 9:15 AM EDT Appointment [facility] - [address] [address] Farhan Olmos MD [address] [place] [phone] [email or web address] documented as of this encounter Visit Diagnoses Diagnosis Asymptomatic menopausal state- Primary documented in this encounter Care Teams Complaint Investigations Officer Relationship Specialty Start Date End Date Jamie Ma MD [address] [place] [phone] [email or web address] PCP - General Family Medicine 03/25/14 documented as of this encounter Additional Source Comments The information contained in this document represents components of the legal health record. It is not the complete legal health record.[facility]
--- OUTSIDE RECORDS SUMMARY | 2025-03-21 08:52 | XMS_ITS | Encounter Summary ---
Author Organization [facility] Address [address] [place] [address] Phone Care Team Providers Care Drum Operator Name Role Phone Maricruz Ybarra MD Primary Care Provider [phone] Encounter Details Date Type Department Care Team (Late st Contact Info) Description 10/27/2020 Orders Only [facility] [address] [place] [phone] Provider, MD Blaze Social History Tobacco Use Types Packs/Day Years [...] encounter Results * EXT RESULT ENTRY (10/27/2020) Historical Provider LAB BLOOD ORDERABLES Letty l Result * EXT RESULT ENTRY (10/27/2020) us Historical Provider LAB BLOOD ORDERABLES Letty l Result documented in this encounter Visit Diagnoses Not on filedocumented in this encounter Care Teams Drum Operator Relationship Specialty Start Date End Date Maricruz Ybarra MD [address] [place] [phone] PCP - General Family Medicine 01/20/22 documented as of this encounter
[2025-03-21 09:51] LABS: Anion Gap 12 (12-20); Blood Urea Nitrogen 38 mg/dL (9-16); Calcium 8.9 mg/dL (8.4-10.2); Carbon Dioxide 28 mmol/L (22-29); Chloride 103 mmol/L (96-108); Estimated Glomerular Filt Rate 29; Potassium 4.4 mmol/L (3.3-5.1); Sodium 139 mmol/L (135-145)
== END 2025-03-21 08:41 | disposition home or self-care (01) ==
LOC: HO.LAB 08:40
PROVIDERS: PCP Family Medicine; Visit Provider Internal Medicine Nephrology
DX: I12.9 Hypertensive chronic kidney disease with stage 1 through stage 4 chronic kidney disease, or unspecified chronic kidney disease (principal); N18.4 Chronic kidney disease, stage 4 (severe); Z79.01 Long term (current) use of anticoagulants; Z79.899 Other long term (current) drug therapy
CPT/HCPCS: 36415; 80051; 82310; 82565; 84520; 99212

== ENCOUNTER 2025-03-21 09:14 | Outpatient (AMB) | payer MEDICARE, OTHER, SELFPAY ==
--- NOTE | 2025-03-21 09:40 | HO.NEPHOV_ITS ---
Vital Signs 03/21/25 09:52 Height 5 ft Weight 171 lb BMI 33.4 BP 124/60 Blood Pressure Location Lt brachial Position Sitting Pulse 57 Pulse Source Pulse Oximeter Pulse Oximetry (%) 97 Oxygen Delivery Method Room Air Intake Visit Reasons: -[facility] Group Exercise Manager Required: No Accompanied by: Daughter Allergies atorvastatin (From Lipitor) Allergy (Verified 03/21/25 09:52) Unknown lovastatin (From Mevacor) Allergy (Verified 03/21/25 09:52) Unknown Sulfa (Sulfonamide Antibiotics) Allergy (Verified 03/21/25 09:52) Unknown HPI Comments Details: I had the privilege of seeing Signia for follow up for CKD. 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 She has H/O incomplete emptying of her bladder. Her blood pressure control has been fair on current medications. She monitors her BP at home. She recently had renal USS which showed bilateral simple appearing renal cysts with slight increase in size of the cyst on the left. Her recent serum creatinine is stable . She denies CAD, CHF, PAD or known YOLANDA. She does not have any urinary symptoms, worsening edema, nausea, vomiting or diarrhea. There were no other systemic complaints at the time of the office visit. 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 Surgical History H/O thyroidectomy H/O colonoscopy History of knee replacement Family History Mother Malignant tumor of breast Father Heart attack Brother Diabetes Hypertension Lymphoma Social History Alcohol intake: never Patient Tobacco Use Status: Never used Tobacco Review of Systems Const All systems reviewed & are unremarkable except as noted in HPI and below Physical Exam Vital Signs: Last Vital Signs Pulse 57 03/21/25 09:52 BP 124/60 03/21/25 09:52 Pulse Ox 97 03/21/25 09:52 Oxygen Delivery Method Room Air 03/21/25 09:52 BMI result Body Mass Index 33.4 Const General: comfortable and no acute distress Orientation/consciousness: patient oriented x3 HEENT Head: Yes normocephalic Mouth: Normal oral and palatal mucosa present Eyes EOM: EOMs intact bilaterally Neck Neck: Yes supple Resp Auscultation: clear to auscultation bilaterally Cardio Jugular venous distension: no JVD Rate: regular rate GI Palpation (GI): Soft to palpation Auscultation: normal bowel sounds General: Yes no CVA tenderness Back/Spine/Pelvis Back: no CVA tenderness Skin General skin exam: no rashes or lesions noted Neuro General: patient oriented x3 and moves all extremities Extrem General: Yes no pedal edema Results Reviewed Nephrology Results: Sodium, (135-145) 139 mmol/L Today Potassium, (3.3-5.1) 4.4 mmol/L Today Chloride, (96-108) 103 mmol/L Today Carbon Dioxide, (22-29) 28 mmol/L Today BUN, (9-16) 38 mg/dL H Today Creatinine, (0.5-1.4) 1.66 mg/dL H Today Calcium, (8.4-10.2) 8.9 mg/dL Δ Today Phosphorus, (2.7-4.5) 3.6 mg/dL 11/14/24 PTH Intact, (8.7-77.1) < 4.0 pg/mL L 11/14/24 Urine Creatinine 31.49 mg/dL 11/14/24 Protein/Creatinin Ratio TNP 11/14/24 Assessment & Plan Assessment & Plan (1) Chronic kidney disease, stage 4 (severe): Code(s): N18.4 - Chronic kidney disease, stage 4 (severe) Category: Medical (2) Essential (primary) hypertension: Code(s): I10 - Essential (primary) hypertension Category: Medical Plan She had a GFR between 25- 30 mls/minute which has improved now. She has CKD is from hypertension even though she is not sure whether she had kidneys involved from anti phospholipid antibody syndrome. She denies any H/O renal arterial or renal vein thrombosis. She has higher post voidal residual. Her BP needs to be maintained at less than 130/80 mm of Hg. She may be a candidate for SGLT2 i in the future. Answered her and her daughters questions. Orders: Orders Complete Blood Count Auto Diff 4 Months I10 - Essential (primary) hypertension, N18.4 - Chronic kidney disease, stage 4 (severe) Electrolytes 4 Months I10 - Essential (primary) hypertension, N18.4 - Chronic kidney disease, stage 4 (severe) Creatinine 4 Months I10 - Essential (primary) hypertension, N18.4 - Chronic kidney disease, stage 4 (severe) Blood Urea Nitrogen 4 Months I10 - Essential (primary) hypertension, N18.4 - Chronic kidney disease, stage 4 (severe) Medications: Refilled carvedilol 3.125 mg PO BID 180 tabs 4RF Coding Level of Care Code Est Pt Level 4 (07437) Diagnoses Chronic kidney disease, stage 4 (severe) N18.4 Essential (primary) hypertension I10
[2025-03-21 09:52] VITALS: BP 124/60; PULSE 57; O2SAT 97; BMI 33.4
== END 2025-03-21 10:19 | disposition home or self-care (01) ==
LOC: HO.HKA 09:15
PROVIDERS: PCP Family Medicine; Visit Provider Internal Medicine Nephrology
DX: I12.9 Hypertensive chronic kidney disease with stage 1 through stage 4 chronic kidney disease, or unspecified chronic kidney disease (principal); N18.4 Chronic kidney disease, stage 4 (severe)
CPT/HCPCS: 99214

== ENCOUNTER 2025-07-22 09:28 | Outpatient (REF) | payer MEDICARE, OTHER, SELFPAY ==
--- OUTSIDE RECORDS SUMMARY | 2015-12-08 23:00 | XMS_ITS | Encounter Summary ---
Author Organization [facility] Address [address] [place] [address] Phone Care Team Providers Care Internet Merchant Name Role Phone Jamie Ma MD Primary Care Provider [phone] Encounter Details Date Type Department Care Team (Late st Contact Info) Description 12/09/2015 Hospital Encounter [facility] [address] [place] [address] Eloy Newton, [address] [address] [email or web address] Social History Tobacco Use Types Packs/Day Years Used Date Smoking Tobacco: Never Smokeless Tobacco: Never Alcohol Use Standard Drinks/Week Comments Not Asked 0 (1 standard drink = 0.6 oz pur e alcohol) Education Answer Date Recorded Are you interested in more education? Not on jaimee e 12/23/2022 Are you concerned about learning? Not on file 12/23/2022 No 12/23/2022 No 12/23/2022 Digital Access Answer Date Recorded No 01/23/2023 No 01/23/2023 Reliable internet access at home? Not on file 01/23/2023 Device with a working camera? Not on file Intimate Partner Violence Answer Date R ecorded Are you denied basic needs s uch as food, clothing, or medical care? No 07/05/2025 In the past 12 months have y ou been in a relationship with a person who hurts, threatens, or tries to control you? No 07/05/2025 Are you denied basic needs s uch as food, clothing, or medical care? No 07/05/2025 In the past 12 months have y ou been in a relationship with a person who hurts, threatens, or tries to control you? No 07/05/2025 Comments Unknown Sex and Gender Information Value Date Recorded Sex Assigned at Female 07/05/2025 2:25 PM EST Legal Sex Female 12:35 PM EDT Gender Identity Female 07/05/2025 2:25 PM EST Sexual Orientation Not on file documented as of this encounter Functional Status * Calculated C-SSRS Risk Score (Lifetime/Recent) Answer Date of Assessment Author No Risk Indicated 07/05/2025 2:25 PM EST Nicole Maravilla, CHEY * [place] Suicide Severity Rating Scale (Screener/Recent Self-Report) Question Answer Date of Assessment Author 1. Wish to be (Past 1 Month) No 025 2:25 PM Nicole Mohr, CHEY 2. Non-Specific Active Suici keara Thoughts (Past 1 Month) No 07/05/2025 2:25 PM Nicole Mohr, CHEY 6. Suicidal Behavior (Lifetime) No 2:25 PM Nicole Mohr RN documented as of this encounter Plan of Treatment Not on file documented as of this encounter Procedures Procedure Name Priority Date/Time Associated Diagnosis Comments US VASCULAR OUTSIDE (NO INTERPRETATION) Routine 12/09/2015 12:00 AM EDT documented in this encounter Results * US Vascular Outside (No Interpretation) (12/09/2015 12:00 AM EDT) Narrative [facility] IMG INTERFACES - 05/19/2016 3:13 PM EDT This study is for PACS storage only and not for interpretation. Procedure Note SYSTEMGENERATED, DOCUMENTATION - 05/19/2016 This study is for PACS storage only and not for interpretation. us Eloy Newton DO CV [facility] documented in this encounter Visit Diagnoses Not on filedocumented in this encounter Care Teams Internet Merchant Relationship Specialty Start Date End Date Jamie Ma MD [address] [place] [phone] [email or web address] PCP - General Family Medicine 03/25/14 07/04/25 documented as of this encounter Additional Source Comments The information contained in this document represents components of the legal health record. It is not the complete legal health record.[facility]
--- OUTSIDE RECORDS SUMMARY | 2015-12-08 23:15 | XMS_ITS | Encounter Summary ---
Author Organization [facility] Address [address] [place] [address] Phone Care Team Providers Care Scale Reclamation Tender Name Role Phone Jamie Ma MD Primary Care Provider [phone] Encounter Details Date Type Department Care Team (Late st Contact Info) Description 12/09/2015 12:15 AM EDT Hospital Encounter [facility] [address] [place] [address] Eloy Newton, [address] [address] [email or web address] Social History Tobacco Use Types Packs/Day Years [...] Author No Risk Indicated 07/05/2025 2:25 PM Nicole Mohr, CHEY * [place] Suicide Severity Rating Scale (Screener/Recent Self-Report) Question Answer Date of Assessment Author 1. Wish to be (Past 1 Month) No 025 2:25 PM Nicole Mohr RN 2. Non-Specific Active Suici keara Thoughts (Past 1 Month) No 07/05/2025 2:25 PM Nicole Mohr, CHEY 6. Suicidal Behavior (Lifetime) No 2:25 PM Nicole Mohr RN documented as of this encounter Plan of Treatment Not on file documented as of this encounter Procedures Procedure Name Priority Date/Time Associated Diagnosis Comments US VASCULAR OUTSIDE (NO INTERPRETATION) Routine 12/09/2015 12:15 AM EDT documented in this encounter Results * US Vascular Outside (No Interpretation) (12/09/2015 12:15 AM EDT) Narrative [facility] IMG INTERFACES - 05/19/2016 3:14 PM EDT This study is for PACS storage only and not for interpretation. Procedure Note SYSTEMGENERATED, DOCUMENTATION - 05/19/2016 This study is for PACS storage only and not for interpretation. us Eloy Newton DO CV US VASCULAR Final Res ult [facility] IMG INTERFACES documented in this encounter Visit Diagnoses Not on filedocumented in this encounter Care Teams Scale Reclamation Tender Relationship Specialty Start Date End Date Jamie Ma MD [address] [place] [phone] [email or web address] PCP - General Family Medicine 03/25/14 07/04/25 documented as of this encounter Additional Source Comments The information contained in this document represents components of the legal health record. It is not the complete legal health record.[facility]
--- OUTSIDE RECORDS SUMMARY | 2015-12-09 23:00 | XMS_ITS | Encounter Summary ---
Author Organization [facility] Address [address] [place] [address] Phone Care Team Providers Care Laboratory Cureman Name Role Phone Jamie Ma MD Primary Care Provider [phone] Encounter Details Date Type Department Care Team (Late st Contact Info) Description 12/10/2015 Hospital Encounter [facility] [address] [place] [address] Eloy Newton, [address] [address] [email or web address] Social History Tobacco Use [...] 2:25 PM EST Nicole Maravilla, CHEY * [place] Suicide Severity Rating Scale (Screener/Recent Self-Report) Question [...] Comments US VASCULAR OUTSIDE (NO INTERPRETATION) Routine 12/10/2015 12:00 AM EDT documented in this encounter Results * US Vascular Outside (No Interpretation) (12/10/2015 12:00 AM EDT) Narrative [facility] IMG INTERFACES - 05/19/2016 3:12 PM EDT This study is for PACS storage only and not for interpretation. Procedure Note SYSTEMGENERATED, DOCUMENTATION - 05/19/2016 This study is for PACS storage only and not for interpretation. us Eloy Newton DO CV [facility] documented in this encounter Visit Diagnoses Not on filedocumented in this encounter Care Teams Laboratory Cureman Relationship Specialty Start Date End Date Jamie Ma MD [address] [place] [phone] [email or web address] PCP - General Family Medicine 03/25/14 07/04/25 documented as of this encounter Additional Source Comments The information contained in this document represents components of the legal health record. It is not the complete legal health record.[facility]
--- OUTSIDE RECORDS SUMMARY | 2015-12-09 23:15 | XMS_ITS | Encounter Summary ---
Author Organization [facility] Address [address] [place] [address] Phone Care Team Providers Care Baker Operator Automatic Name Role Phone Jamie Ma MD Primary Care Provider [phone] Encounter Details Date Type Department Care Team (Late st Contact Info) Description 12/10/2015 12:15 AM EDT Hospital Encounter [facility] [address] [place] [address] Eloy Newton, [address] [address] [email or web address] Social History Tobacco Use Types Packs/Day Years [...] 07/05/2025 2:25 PM Nicole Mohr, CHEY * [place] Suicide Severity Rating Scale (Screener/Recent Self-Report) Question [...] US VASCULAR OUTSIDE (NO INTERPRETATION) Routine 12/10/2015 12:15 AM EDT documented in this encounter Results * US Vascular Outside (No Interpretation) (12/10/2015 12:15 AM EDT) Narrative [facility] IMG INTERFACES - 05/19/2016 3:12 PM EDT This study is for PACS storage only and not for interpretation. Procedure Note SYSTEMGENERATED, DOCUMENTATION - 05/19/2016 This study is for PACS storage only and not for interpretation. us Eloy Newton DO CV US VASCULAR Final Res ult [facility] IMG INTERFACES documented in this encounter Visit Diagnoses Not on filedocumented in this encounter Care Teams Baker Operator Automatic Relationship Specialty Start Date End Date Jamie Ma MD [address] [place] [phone] [email or web address] PCP - General Family Medicine 03/25/14 07/04/25 documented as of this encounter Additional Source Comments The information contained in this document represents components of the legal health record. It is not the complete legal health record.[facility]
[2025-07-22 09:41] LABS: MANUAL DIFF FLAG NO
[2025-07-22 10:10] LABS: Hematocrit 36.5 % (37.0-47.0); Hemoglobin 11.7 g/dl (12.0-16.0); Imm Gran Abs Auto 0.04 X10*3/uL (0.00-0.03); Imm Gran Pct Auto 0.5 % (0.0-0.4); Lymphocytes Absolute Auto 1.3 X10*3/uL (1.2-4.9); Mean Corpuscular HGB Conc 32.1 g/dl (31.0-35.0); Mean Corpuscular Hemoglobin 30.5 pg (27.0-33.0); Mean Corpuscular Volume 95.1 fL (80.0-98.0); NRBC Abs Auto 0.000 X10*3/uL (0.0-0.012); NRBC Pct Auto 0.0 /100WBC (0.0-0.2); Platelet Count 178 X10*3/uL (160-400); Red Blood Count 3.84 X10*6/uL (4.20-5.50); White Blood Count 8.8 X10*3/uL (4.8-10.8)
[2025-07-22 10:44] LABS: Anion Gap 11 (12-20); Blood Urea Nitrogen 23 mg/dL (9-16); Carbon Dioxide 30 mmol/L (22-29); Chloride 104 mmol/L (96-108); Estimated Glomerular Filt Rate 30; Potassium 4.4 mmol/L (3.3-5.1); Sodium 141 mmol/L (135-145)
--- OUTSIDE RECORDS SUMMARY | 2025-07-22 10:57 | XMS_ITS | Clinical Summary ---
Author Organization [facility], Address [address] [place] [address] Phone Care Team Providers Care Fire Extinguisher Installer Name Role Phone Maricruz Ybarra MD Primary Care Provider [phone] Allergies Active Allergy Reactions Criticality Noted Date [...] time each day 90 tablet 3 4 Active lisinopril 2.5 MG tablet Take 2.5 [...] complaining of palpitations at the present time Family History Medical History Relation Comments Heart [...] 09/17/2020 12:00 PM EST Plan of Treatment Health Maintenance Due Date Last Done Comments Influenza Vaccine (#1) 2025 , 06/13/2023, 06/07/2019, Additional history exists Pneumococcal Vaccine: 50+ Years Completed 01/08/2015, 03/12/2007 Pneumococcal Vaccine: Peds (0 to 5 Years) and At-Risk Patients (6 to 49 Years) Discontinued 01/08/2015, 03/12/2007 Hepatitis B Vaccine Aged Out No longe r eligible based on patient's age to complete this topic Insurance Medicare [facility] Medicare Care Teams Fire Extinguisher Installer Relationship Specialty Start Date End Date Maricruz Ybarra MD [address] [place] [phone] PCP - General Family Medicine 01/20/22
--- OUTSIDE RECORDS SUMMARY | 2025-07-22 10:57 | XMS_ITS | Encounter Summary ---
Author Organization [facility] Address [address] [facility] [address] [place] [address] Phone Care Team Providers Care Credit Officer Name Role Phone Jamie Ma MD Primary Care Provider [phone] Maricruz Ybarra MD Primary Care Provider [phone] Encounter Details Date Type Department Care Team (Late st Contact Info) Description 02/26/2018 Ancillary Orders [facility] [address] [place] [address] Jim Arzate, DO [address] [address] [email or web address] Social History Tobacco Use Types Packs/Day Years [...] on file documented as of this encounter Visit Diagnoses Not on filedocumented in this encounter Care Teams Credit Officer Relationship Specialty Start Date End Date Jamie Ma MD [address] [place] [phone] [email or web address] PCP - General Family Medicine 03/25/14 07/04/25 Maricruz Ybarra MD [address] [place] [address] [place] [address] PCP - General Family Medicine 07/05/25 documented as of this encounter Additional Source Comments The information contained in this document represents components of the legal health record. It is not the complete legal health record.[facility]
--- OUTSIDE RECORDS SUMMARY | 2025-07-22 10:57 | XMS_ITS | Encounter Summary ---
Author Organization [facility] Address [address] [place] [address] Phone Care Team Providers Care Java Developer Analyst Name Role Phone Jamie Ma MD Primary Care Provider [phone] Maricruz Ybarra MD Primary Care Provider [phone] Encounter Details Date Type Department Care Team (Latest Contact Info) Description 07/29/2024 Transcribe Orders Virtual Department [address] [place] [address] Farhan Olmos MD [address] [place] [address] [email or web address] Asymptomatic menopausal state (Primary Dx) Social History [...] Primary documented in this encounter Care Teams Java Developer Analyst Relationship Specialty Start Date End Date Jamie Ma MD [address] [place], [place] [address] [phone] [email or web address] PCP - General Family Medicine 03/25/14 07/04/25 Maricruz Ybarra MD [address] [place] [address] [place] [phone] PCP - General Family Medicine 07/05/25 documented as of this encounter Additional Source Comments The information contained in this document represents components of the legal health record. It is not the complete legal health record.[facility]
--- OUTSIDE RECORDS SUMMARY | 2025-07-22 10:57 | XMS_ITS | Encounter Summary ---
Author Organization [facility] Address [address] [place] [address] Phone Care Team Providers Care Working Second Hand Name Role Phone Jamie Ma MD Primary Care Provider [phone] Maricruz Ybarra MD Primary Care Provider [phone] Encounter Details Date Type Department Care Team (Latest Contact Info) Description 05/31/2024 Transcribe Orders Virtual Department [address] [place] [address] Farhan Olmos MD [address] [place] [address] [email or web address] Asymptomatic menopausal state (Primary Dx) Social History [...] Primary documented in this encounter Care Teams Working Second Hand Relationship Specialty Start Date End Date Jamie Ma MD [address] [place], [place] [address] [address] [email or web address] PCP - General Family Medicine 03/25/14 07/04/25 Maricruz Ybarra MD [address] [place] [address] [place] [phone] PCP - General Family Medicine 07/05/25 documented as of this encounter Additional Source Comments The information contained in this document represents components of the legal health record. It is not the complete legal health record.[facility]
--- OUTSIDE RECORDS SUMMARY | 2025-07-22 10:57 | XMS_ITS | Encounter Summary ---
Author Organization [facility] Address [address] [place] [address] Phone Care Team Providers Care Fountain Dispenser Name Role Phone Maricruz Ybarra MD Primary Care Provider [phone] Encounter Details Date Type Department Care Team (Late st Contact Info) Description 10/27/2020 Orders Only [facility] [address] [place] [phone] Provider, MD Blaze Social History Tobacco Use [...] on filedocumented in this encounter Care Teams Fountain Dispenser Relationship Specialty Start Date End Date Maricruz Ybarra MD [address] [place] [phone] PCP - General Family Medicine 01/20/22 documented as of this encounter
--- OUTSIDE RECORDS SUMMARY | 2025-07-22 10:57 | XMS_ITS | Encounter Summary ---
Author Organization [facility] Address [address] [facility] [address] [address] [place] [address] Phone Care Team Providers Care Pattern Fitter Name Role Phone Jamie Ma MD Primary Care Provider [phone] Maricruz Ybarra MD Primary Care Provider [phone] Encounter Details Date Type Department Care Team (Latest Contact Info) Description 03/03/2025 Transcribe Orders Virtual Department [address] [place] [address] Farhan Olmos MD [address] [place] [address] [email or web address] Asymptomatic menopausal state (Primary Dx) Social History [...] on file documented as of this encounter Results * BD DXA SPINE AND HIP WITH FOREARM (03/30/2025 9:10 AM EDT) Anatomical Region Laterality Modality Bone Density Bone Density 03/30/2025 8:55 AM EDT Impressions 04/01/2025 8:35 AM EDT Interpretation: Normal bone mineral density. Narrative 04/01/2025 8:35 AM EDT Referred By: FARHAN OLMOS Indications: Postmenopausal Scanner: [employer] A with serial# of [id number] located at [facility] Bone Density Scan (DXA) 03/30/25 Details of prior DXA scans are available by clicking View Full Report BMD T- Z- Skeletal Site gm/cm2 score score BMD Change Since Prior Scan ------ ----- ----- PA Spine (L1 L2) 1.364 3.50 6.20 N/A Total Hip (Left) 1.089 1.20 3.50 N/A Femoral Neck (Left) 0.941 0.80 3.30 N/A Total Hip (Right) 1.000 0.50 2.80 N/A Femoral Neck (Right) 0.865 0.10 2.70 N/A 1/3 Radius (Left) 0.660 -0.40 3.40 N/A ------ ----- ----- * Denotes significant change when >= 0.022 g/cm2 for the spine, 0.027 g/cm2 for the total hip, 0.029 g/cm2 for the femoral neck, 0.023 g/cm2 for the forearm (1/3 radius). Interpretation: Normal bone mineral density. Technical Quality: The PA Spine scan was of marginal quality because of sclerosis or fracture (which increase BMD). Because only two vertebrae are measurable, interpret PA spine results with caution; serial changes may be more variable than usual. FRAX: A FRAX(r) score is not provided because the patient has normal bone density. Reviewed By: Duke Krueger MD on 04/01/2025 08:35:42 Additional Information: -World Health Organization criteria classify adults based on lowest T-score at PA spine, hip or forearm: Normal (T-score >= -1.0), Osteopenia (T-score between -1 and -2.5), or Osteoporosis (T-score <= -2.5). At [facility], T-scores are compared to peak bone density of a young white gender matched reference population. - For premenopausal women and men under the age of 50, Z-scores (comparison to age, gender, and ethnicity matched reference population) are used: Above expected range for age (Z-score >= 2.0), Within expected range of age (Z-score 1.9 to -1.9), or Below expected range for age (Z-score <= -2.0). - The Bone Health and Osteoporosis Foundation recommends that treatment be considered in men aged more than 50 years and in postmenopausal women with ANY of the following: Prior hip or vertebral fractures; T-score of <= -2.5 at the PA spine or hip; or 10 year fracture probability by FRAX of >= 3% for the hip or >= 20% for major osteoporotic fracture. - The FRAX algorithm (https://www.marisa.ac.uk/FRAX/tool.aspx) is designed to predict 10-year fracture risk in treatment-naive adults between the ages of 40 and 90. It is not intended to be used in those receiving pharmacologic osteoporosis treatment. - The TBS is derived from the texture of the DXA spine image and has been shown to be related to bone microarchitecture and fracture risk. This data provides information independent of BMD value. It adds to fracture risk assessment with a FRAX adjusted for TBS score. If your patient had a TBS and qualified for a FRAX score, the reported FRAX score has been adjusted for TBS. TBS Score Interpretation 1.350 and greater Normal bone microarchitecture 1.200 to 1.350 Partially degraded bone microarchitecture 1.200 and less Degraded bone microarchitecture - Including race/ethnicity in the generation of T- or Z-scores or in the FRAX calculation is complicated, and currently undergoing active review to ensure that we can give patients the best information on their risk of fracture. - Some prior studies may not be compatible with our comparison software. - Click on View Full Report to see subsequent pages with images and prior bone density results. Procedure Note Duke Krueger MD - 04/01/2025 Referred By: FARHAN OLMOS Indications: Postmenopausal Scanner: [employer] A with serial# of [id number] located at [facility] Bone Density Scan (DXA) 03/30/25 Details of prior DXA scans are available by clicking View Full Report BMD T- Z- Skeletal Site gm/cm2 score score BMD Change Since Prior Scan ------ ----- PA Spine (L1 L2) 1.364 3.50 6.20 N/A Total Hip (Left) 1.089 1.20 3.50 N/A Femoral Neck (Left) 0.941 0.80 3.30 N/A Total Hip (Right) 1.000 0.50 2.80 N/A Femoral Neck (Right) 0.865 0.10 2.70 N/A 1/3 Radius (Left) 0.660 -0.40 3.40 N/A ------ ----- * Denotes significant change when >= 0.022 g/cm2 for the spine, 0.027g/cm2 for the total hip, 0.029 g/cm2 for the femoral neck, 0.023 g/cm2 for the forearm (1/3 radius). Interpretation: Normal bone mineral density. Technical Quality: The PA Spine scan was of marginal quality because of sclerosis or fracture (which increase BMD). Because only two vertebraeare measurable, interpret PA spine results with caution; serial changes may be more variable than usual. FRAX: A FRAX(r) score is not provided because the patient has normal bone density. Reviewed By: Duke Krueger MD on 04/01/2025 08:35:42 Additional Information: -World Health Organization criteria classify adults based on lowestT-score at PA spine, hip or forearm: Normal (T-score >= -1.0), Osteopenia (T-score between -1 and -2.5), or Osteoporosis (T-score <= -2.5). At [facility], T-scores are compared to peak bone density of a young white gender matched reference population. - For premenopausal women and men under the age of 50, Z-scores(comparison to age, gender, and ethnicity matched reference population) are used:Above expected range for age (Z-score >= 2.0), Within expected range of age (Z-score 1.9 to -1.9), or Below expected range for age (Z-score <= -2.0). - The Bone Health and Osteoporosis Foundation recommends that treatment be considered in men aged more than 50 years and in postmenopausal women with ANY of the following: Prior hip or vertebral fractures; T-score of <= -2.5 at the PA spine or hip; or 10 year fracture probability by FRAX of >= 3%for the hip or >= 20% for major osteoporotic fracture. - The FRAX algorithm (https://www.marisa.ac.uk/FRAX/tool.aspx) is designed to predict 10-year fracture risk in treatment-naive adultsbetween the ages of 40 and 90. It is not intended to be used in those receiving pharmacologic osteoporosis treatment. - The TBS is derived from the texture of the DXA spine image and has been shown to be related to bone microarchitecture and fracture risk. This data provides information independent of BMD value. It adds to fracture risk assessment with a FRAX adjusted for TBS score. If your patient had a TBSand qualified for a FRAX score, the reported FRAX score has been adjusted for TBS. TBS Score Interpretation 1.350 and greater Normal bone microarchitecture 1.200 to 1.350 Partially degraded bone microarchitecture 1.200 and less Degraded bone microarchitecture - Including race/ethnicity in the generation of T- or Z-scores or in the FRAX calculation is complicated, and currently undergoing active review to ensure that we can give patients the best information on their risk of fracture. - Some prior studies may not be compatible with our comparison software. - Click on View Full Report to see subsequent pages with images andprior bone density results. IMPRESSION: Interpretation: Normal bone mineral density. us Farhan Olmos MD IMG BD BONE DENSITY DEXA Fin al Result documented in this encounter Visit Diagnoses Diagnosis Asymptomatic menopausal state- Primary Asymptomatic menopausal state documented in this encounter Care Teams Pattern Fitter Relationship Specialty Start Date End Date Jamie Ma MD [address] [place] [phone] [email or web address] PCP - General Family Medicine 03/25/14 07/04/25 Maricruz Ybarra MD [address] [place] [address] [place] [phone] PCP - General Family Medicine 07/05/25 documented as of this encounter Additional Source Comments The information contained in this document represents components of the legal health record. It is not the complete legal health record.[facility]
--- OUTSIDE RECORDS SUMMARY | 2025-07-22 10:57 | XMS_ITS | Clinical Summary ---
Author Organization [facility] Address [address] [place] [address] Phone Care Team Providers Care Oil Burner Journeyman Name Role Phone Maricruz Ybarra MD Primary Care Provider [phone] Allergies Active Allergy Reactions Criticality Noted Date Comments Atorvastatin Other (See Comments) High 03/22/2025 Lipitor Lovastatin Other (See Comments) High 03/22/2025 Mevacor Red Dye 03/22/2025 Simvastatin Musculoskeletal Pain,Other (See Comments) 05/09/2016 Ylwtxxq-Yiv-Vvz Reductase Inhibitors 03/22/2025 Sulfa (Sulfonamide Antibiotics) Unknown,Other (See Comments) 02/22/2021 Substance with sulfonamide structure and antibacterial mechanism of action (substance) Medications amLODIPine (NORVASC) 5 MG tabletIndicati ons:hypertensi on Take 5 mg by mouth daily. Indications: Hypertension Active lisinopril (PRINIVIL,ZEST RIL) 2.5 MG tabletIndicati ons:hypertensi on Take 2.5 mg by mouth daily. Indications: Hypertension Active levothyroxine (SYNTHROID, LEVOTHROID) 100 MCG tabletIndicati ons:hypothyroi dism Take 100 mcg by mouth daily. Indications: Hypothyroidism Active cholecalcifero l (VITAMIN D3) 1,000 unit tablet Take 1,000 Units by mouth daily. Active warfarin (COUMADIN) 5 MG tabletIndicati ons:deep venous thrombosis,APL S Take 5 mg by mouth daily. Indications: Deep Venous Thrombosis, APLS Active acetaminophen (TYLENOL) 325 mg tablet Take 650 mg by mouth every 6 (six) hours as needed for mild pain. Active levothyroxine (SYNTHROID, LEVOTHROID) 88 MCG tablet Take 88 mcg by mouth every morning. Active vibegron (GEMTESA) 75 mg tablet Take 75 mg by mouth daily. Active terbinafine HCL (LAMISIL) 1 % cream APPLY TO THE AFFECTED AND SURROUNDING AREAS OF SKIN BY TOPICAL ROUTE ONCE DAILY Active rosuvastatin (CRESTOR) 5 MG tablet Take 1 tablet by mouth every morning. 02/15/20 25 Active psyllium (METAMUCIL) 3.4 gram packet Take 1.7 g by mouth. 11/10/19 Active prochlorperazi ne (COMPAZINE) 10 MG tablet Active magnesium 250 mg Tab Take 2 tablets by mouth. Active losartan (COZAAR) 25 MG tablet Take 25 mg by mouth. 11/16/19 24 Active ezetimibe (ZETIA) 10 mg tablet Take 10 mg by mouth daily. 11/10/19 21 Active estradioL (ESTRACE) 0.01 % (0.1 mg/gram) vaginal cream PLEASE SEE ATTACHED FOR DETAILED DIRECTIONS Active enoxaparin sodium (LOVENOX SUBQ) 100mg daily x 7 days. Active clobetasol (TEMOVATE) 0.05 % cream APPLY THIN COAT TO AFFECTED AREA TWICE A DAY Active celecoxib (CELEBREX) 200 MG capsule Take 1 capsule every day by oral route. Active acetaminophen/ diphenhydramin e (TYLENOL PM EXTRA STRENGTH ORAL) Take by mouth. 11/10/19 Active atenolol (TENORMIN) 25 MG tablet Take 25 mg by mouth daily. Active calcitriol (ROCALTROL) 0.25 MCG capsule Take 0.25 mcg by mouth. Active calcium carbonate 500 mg (200 mg elemental) chewable tablet Take 2 tablets by mouth. Active carvedilol (COREG) 3.125 MG tablet TAKE 1 TABLET ORALLY 2 TIMES A DAY Active omeprazole (PRILOSEC) 40 MG capsule Take 1 capsule (40 mg total) by mouth daily. 7 capsule 03/22/20 25 Active UNITHROID 75 mcg tablet TAKE 2 TABLETS BY MOUTH ON MONDAY, THEN 1 TAB/DAY FOR 6 FOLLOWING WEEKDAYS. REPEAT COURSE WEEKLY 05/12/20 25 Active predniSONE (DELTASONE) 10 MG tablet 40 mg daily until symptoms begin to improve and then taper to 30 mg x 1 dose, 20 mg x 1 dose, 10 mg x 1 dose 32 tablet 07/05/20 25 Active docusate sodium (COLACE) 50 MG capsuleIndicat ions:constipat ion Take by mouth 2 (two) times a day. Indications: Constipation Discontin ued(No longer taking) traMADol (ULTRAM) 50 mg tablet Take 50 mg by mouth every 8 (eight) hours as needed for pain (specific location in comments). Discontin ued(No longer taking) melatonin 5 mg Tab Take by mouth nightly. Discontin ued(No longer taking) polyethylene glycol (GOLYTELY) 236-22.74-6.74 -5.86 gram solution Discontin ued(No longer taking) oxyCODONE-acet aminophen (PERCOCET) 5-325 mg per tablet Take 2 tablets every 4 hours by oral route. Discontin ued(No longer taking) colchicine (COLCRYS) 0.6 mg tablet Take 1 tablet as needed by oral route. Discontin ued(No longer taking) Active Problems Problem Noted Date Diagnosed Date Benign essential hypertension 07/05/2025 Gout 07/05/2025 Stage 3 chronic kidney disease 07/05/2025 Transient cerebral ischemia 07/05/2025 Nephrolithiasis 03/18/2021 Hypertensive renal disease 02/22/2021 Antiphospholipid syndrome 10/21/2019 Overview (07/05/2025): [facility] Pure hypercholesterolemia 09/18/2018 Assessment & Plan (03/19/2019 11:43 AM EDT): As mentioned this is a big problem for her on Zetia her LDL still 176 we are going to give her 1 of the new injectable medications but will check with the pharmacy to see which one is offered Assessment & Plan (09/18/2018 12:59 PM EST): He did alter her diet quite a bit we are going to check another set of labs in 5 months or so. LDL for her wrist should be less than 100 mg/dL Hypertension 01/09/2018 Assessment & Plan (03/19/2019 11:43 AM EDT): We will treated now this may be the cause in the past of her renal dysfunction she says that she is between stage III and IV kidney disease Assessment & Plan (09/18/2018 12:57 PM EST): Well-controlled to the guidelines. Assessment & Plan (03/19/2018 10:52 AM EDT): Well-controlled at the present time on lisinopril and amlodipine Assessment & Plan (01/09/2018 12:32 PM EDT): Well-controlled at the present time to the guidelines on lisinopril and amlodipine Palpitations 01/09/2018 Assessment & Plan (03/19/2019 11:42 AM EDT): She is not complaining of palpitations at the present time Assessment & Plan (09/18/2018 12:57 PM EST): This is not an active medical problem at this time Assessment & Plan (03/19/2018 10:54 AM EDT): No evidence of atrial fibrillation Assessment & Plan (01/09/2018 12:33 PM EDT): We'll get an echo and event monitor I will follow-up with her thereafter as outlined in the history of present illness Hypothyroidism 01/09/2018 Assessment & Plan (03/19/2018 10:53 AM EDT): Being overtreated at the present time she is going to get her dose reduced slightly Assessment & Plan (01/09/2018 12:33 PM EDT): We need to ensure she is not being overtreated with medication as it will cause arrhythmias DVT (deep venous thrombosis) 01/09/2018 Assessment & Plan (09/18/2018 12:57 PM EST): As mentioned 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 Assessment & Plan (03/19/2018 10:53 AM EDT): She is on long-term warfarin therapy for chronic DVT on the right without provocation INR should be between 2 and 2.5 recent ultrasound shows a recanalized thrombus that is chronic in that right deep system. I will follow-up with her in 6 months time Assessment & Plan (01/09/2018 12:33 PM EDT): As above we will need to recheck this with ultrasound which I have ordered I will follow-up with her thereafter Symptoms involving urinary system 04/03/2008 Diverticulitis of colon 08/25/2006 Hyperparathyroidism 11/11/2005 Hyperlipidemia 12/20/2002 Idiopathic osteoporosis 2001 Encounters Date Type Department Care Team Description 07/05/2025 2:40 PM EST - 07/05/2025 5:27 PM EST Emergency [facility] [address] [place] [address] Discharge Disposition: Home or Self Care 07/05/2025 1:40 PM EST Office Visit [facility] [address] [place] [address] Brian Pierre PA-C Right hand pain (Primary Dx) from Last 3 Months Family History Medical History Relation Comments CV disease Father 2 Cancer Mother 2 Hypertension Mother 2 Stroke Paternal Grandfather 2 Cancer Sibling 2 Relation Status Comments Father 1 Father 2 Mother 1 Mother 2 Paternal Grandfather 1 Paternal Grandfather 2 Sibling 1 Alive Sibling 2 Social History Tobacco Use Types Packs/Day Years [...] PM EST Sexual Orientation Not on file Last Filed Vital Signs Vital Sign Reading Time Taken Comments Blood Pressure 145/83 07/05/2025 4:30 PM EST Pulse 57 07/05/2025 4:30 PM EST Temperature 35.7 C (96.3 F) 07/05/2025 4:30 PM EST Respiratory Rate 18 07/05/2025 4:30 PM EST Oxygen Saturation 99% 07/05/2025 4:30 PM EST Inhaled Oxygen Concentration - - Weight 72.6 kg (160 lb) 07/05/2025 2:24 PM EST Height 157.5 cm (5' 2 ) 07/05/2025 2:24 PM EST Body Mass Index 29.26 07/05/2025 2:24 PM EST Plan of Treatment Health Maintenance Due Date Last Done Comments TSH LEVEL 1940 DEPRESSION SCREENING 1952 PNEUMOCOCCAL VACCINES (50+ years) (2 of 2 - PCV) 03/12/2008 03/12/2007 Adult Td,Tdap Booster 08/30/2014 08/30/2004 RSV VACCINE (1 - 1-dose 75+ series) 2015 INFLUENZA VACCINE (#1) 2025 , 06/08/2020, 06/07/2019, Additional history exists COVID-19 VACCINE (3 - 2025-26 season) 2025 10/23/2020, 10/02/2020 BLOOD PRESSURE 01/02/2026 07/05/2025 CREATININE LEVEL 07/05/2026 07/05/2025 POTASSIUM LEVEL 07/05/2026 07/05/2025 ZOSTER VACCINES Completed 04/08/2019, 12/27, 03/07/2011 OSTEOPOROSIS SCREENING INITIAL (ONE-TIME) Completed 03/30/2025 HEPATITIS A VACCINES Aged Out No long er eligible based on patient's age to complete this topic HIB VACCINES Aged Out No longer eligi ble based on patient's age to complete this topic IPV VACCINES Aged Out No longer eligi ble based on patient's age to complete this topic MENINGOCOCCAL VACCINES (ACWY) Aged Out No longer eligible based on patient's age to complete this topic MENINGOCOCCAL VACCINES (B) Aged Out N o longer eligible based on patient's age to complete this topic Medical Devices Not on file Procedures Procedure Name Priority Date/Time Associated Diagnosis Comments PT-INR STAT 07/05/2025 4:52 PM EST XR HAND 3 OR MORE VIEWS (RIGHT) Routine 07/05/2025 3:39 PM EST URIC ACID STAT 07/05/2025 3:30 PM EST C-REACTIVE PROTEIN (CRP) STAT 07/05/2025 3:30 PM EST BASIC METABOLIC PANEL (BMP) STAT 07/05/2025 3:30 PM EST CBC AND DIFFERENTIAL STAT 07/05/2025 3:29 PM EST SEDIMENTATION RATE (ESR) STAT 07/05/2025 3:29 PM EST CBC AND DIFFERENTIAL STAT 07/05/2025 3:29 PM EST BD DXA SPINE AND HIP WITH FOREARM Routine 03/30/2025 9:10 AM EDT Asymptomatic menopausal state from Last 3 Months or Most Recently Relevant to Health Maintenance Results * (ABNORMAL) PT-INR (07/05/2025 4:52 PM EST) PT 20.6(H) 10.0 - 13.0 sec 07/05/2025 5:11 PM EST [facility] INR 1.7(H) 0.9 - 1.1 07/05/2025 5:11 PM EST [facility] Comment:Therapeutic Range 2. 0 - 3.5 Blood (Blood) Venipuncture / Unknown 07/05/2025 4:52 PM EST 07/05/2025 4:57 PM EST us Ramon Greene PA-C LAB BLOOD BKR ORDERABLES Letty phelan Result [address] [address] * XR HAND 3 OR MORE VIEWS (RIGHT) (07/05/2025 3:39 PM EST) Anatomical Region Laterality Modality Hand Right Computed Radiogr aphy 07/05/2025 4:05 PM EST Impressions 07/05/2025 4:06 PM EST Marked degenerative changes of multiple interphalangeal joints with large erosions and soft tissue swelling. 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 No acute fracture. Narrative 07/05/2025 4:06 PM EST XR HAND 3 OR MORE VIEWS (RIGHT) Referring clinician's provided indication for this examination in Epic: Infection; Pain COMPARISON: XR HAND 3 OR MORE VIEWS (BILATERAL) FINDINGS: Marked degenerative changes of multiple interphalangeal joints with large marginal erosions of multiple interphalangeal joints, most superiorly affecting the third PIP joint, fourth PIP and DIP joint and fifth DIP joint. Severe degenerative changes of the basal joint of the thumb with osteophyte formation. Narrowing of the radiocarpal joint and dorsal soft tissue swelling. No acute fracture. Procedure Note April Reyes MD, PhD - 07/05/2025 XR HAND 3 OR MORE VIEWS (RIGHT) Referring clinician's provided indication for this examination in Epic:Infection; Pain COMPARISON: XR HAND 3 OR MORE VIEWS (BILATERAL) FINDINGS: Marked degenerative changes of multiple interphalangeal joints with largemarginal erosions of multiple interphalangeal joints, most superiorlyaffecting the third PIP joint, fourth PIP and DIP joint and fifth DIPjoint. Severe degenerative changes of the basal joint of the thumb withosteophyte formation. Narrowing of the radiocarpal joint and dorsal softtissue swelling. No acute fracture. IMPRESSION: Marked degenerative changes of multiple interphalangeal joints with largeerosions and soft tissue swelling. 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 Ramon Greene PA-C IMG XR UPPER EXTREMITY Final Result * (ABNORMAL) C-Reactive Protein (CRP) (07/05/2025 3:30 PM EST) C Reactive Protein 18.0(H) <10.0 mg/L 07/05/2025 4:20 PM EST [facility] Comment:NOTE: This reference range is for the evaluation of inflammation. Order CRP, High Sensitivity for cardiac risk status evaluation. Blood (Blood) Venipuncture / Unknown 07/05/2025 3:30 PM EST 07/05/2025 3:34 PM EST Ramon Greene PA-C LAB BLOOD BKR ORDERABLES Letty l Result [facility] [address] [place], [place] [id number] * (ABNORMAL) Uric Acid (07/05/2025 3:30 PM EST) Uric Acid 8.3(H) 2.4 - 5.7 mg/dL 07/05/2025 4:20 PM EST [facility] Blood (Blood) Venipuncture / Unknown 07/05/2025 3:30 PM EST 07/05/2025 3:34 PM EST Ramon Greene PA-C LAB BLOOD BKR ORDERABLES Letty l Result [address] [address] * (ABNORMAL) Basic Metabolic Panel (BMP) (07/05/2025 3:30 PM EST) Pathologist [facility] Sodium 136 136 - 145 mmol/L 07/05/2025 4:20 PM [facility] Potassium 4.2 3.4 - 5.1 mmol/L 07/05/2025 4:20 PM [facility] Chloride 99 98 - 107 mmol/L 07/05/2025 4:20 PM [facility] CO2 24 20 - 31 mmol/L 07/05/2025 4:20 PM [facility] Anion Gap 13 3 - 17 mmol/L 07/05/2025 4:20 PM [facility] BUN 28(H) 6 - 23 mg/dL 07/05/2025 4:20 PM [facility] Creatinine 1.40(H) 0.50 - 1.00 mg/dL 07/05/2025 4:20 PM [facility] eGFR 37(L) >59 mL/min/1.7 3m2 07/05/2025 4:20 PM [facility] Comment:Estimated glomerular filtration rate calculated using the CKD-EPI refit equation. Glucose 121(H) 70 - 99 mg/dL 07/05/2025 4:20 PM [facility] Calcium 9.4 8.5 - 10.5 mg/dL 07/05/2025 4:20 PM [facility] Blood (Blood) Venipuncture / Unknown 07/05/2025 3:30 PM EST 07/05/2025 3:34 PM EST Ramon Greene PA-C LAB BLOOD BKR ORDERABLES Letty l Result [address] [address] * (ABNORMAL) CBC and Differential (07/05/2025 3:29 PM EST) WBC 8.69 4.00 - 11.00 K/uL 07/05/2025 3:40 PM [facility] RBC 3.88(L) 4.00 - 5.20 M/uL 07/05/2025 3:40 PM [facility] Hemoglobin 11.7(L) 12.0 - 16.0 g/dL 07/05/2025 3:40 PM [facility] Hematocrit 36.6 36.0 - 46.0 % 07/05/2025 3:40 PM [facility] MCV 94.3 80.0 - 100.0 fL 07/05/2025 3:40 PM [facility] MCH 30.2 27.0 - 31.0 pg 07/05/2025 3:40 PM [facility] MCHC 32.0 32.0 - 36.0 g/dL 07/05/2025 3:40 PM [facility] MPV 10.0 8.4 - 12.0 fL 07/05/2025 3:40 PM [facility] RDW-CV 13.3 11.5 - 14.5 % 07/05/2025 3:40 PM [facility] PLT 148(L) 150 - 450 K/uL 07/05/2025 3:40 PM [facility] Neutrophils 69.3 % 07/05/2025 3:40 PM [facility] Lymphocytes 18.6 % 07/05/2025 3:40 PM [facility] Monocytes 8.5 % 07/05/2025 3:40 PM [facility] Eosinophils 3.0 % 07/05/2025 3:40 PM [facility] Basophils 0.3 % 07/05/2025 3:40 PM [facility] Imm Grans 0.3 % 07/05/2025 3:40 PM [facility] NRBC 0.0 <=0.0 /100 WBCs 07/05/2025 3:40 PM [facility] Absolute Neutrophils 6.01 1.92 - 7.60 K/uL 07/05/2025 3:40 PM [facility] Absolute Lymphocytes 1.62 0.72 - 4.10 K/uL 07/05/2025 3:40 PM [facility] Absolute Monocytes 0.74 0.16 - 1.10 K/uL 07/05/2025 3:40 PM [facility] Absolute Eosinophils 0.26 0.00 - 0.50 K/uL 07/05/2025 3:40 PM [facility] Absolute Basophils 0.03 0.00 - 0.15 K/uL 07/05/2025 3:40 PM [facility] Absolute Imm Grans 0.03 0.00 - 0.09 K/uL 07/05/2025 3:40 PM [facility] Absolute NRBC 0.00 <=0.00 K cells/uL 07/05/2025 3:40 PM [facility] Absolute Neutrophils 6.01 1.92 - 7.60 K/uL 07/05/2025 3:40 PM [facility] Comment:Automated cell count . Manual ANC may differ if performed. Diff Type Auto 07/05/2025 3:40 PM [facility] Blood (Blood) Venipuncture / Unknown 07/05/2025 3:29 PM EST 07/05/2025 3:34 PM EST Ramon Greene PA-C LAB BLOOD BKR ORDERABLES Letty l Result Performing Organization Address City/[facility]/ZIP Co de Phone Number [address] [address] * (ABNORMAL) Erythrocyte Sedimentation Rate (ESR) (07/05/2025 3:29 PM EST) ESR 49(H) 0 - 30 mm/h 07/05/2025 3:47 PM [facility] Blood (Blood) Venipuncture / Unknown 07/05/2025 3:29 PM EST 07/05/2025 3:34 PM EST Ramon Greene PA-C LAB BLOOD BKR ORDERABLES Letty l Result [address] [address] * BD DXA SPINE AND HIP WITH FOREARM (03/30/2025 9:10 AM EDT) Anatomical Region Laterality Modality Bone Density Bone Density 03/30/2025 8:55 AM EDT Impressions 04/01/2025 8:35 AM EDT Interpretation: Normal bone mineral density. Narrative 04/01/2025 8:35 AM EDT Referred By: FARHAN OLMOS Indications: Postmenopausal Scanner: [employer] A with serial# of [id number] located at [facility] Bone Density Scan (DXA) 03/30/25 Details [...] -2.5), or Osteoporosis (T-score <= -2.5). At [facility], T-scores are compared to peak bone density [...] Referred By: FARHAN OLMOS Indications: Postmenopausal Scanner: [employer] A with serial# of [id number] located at [facility] Bone Density Scan (DXA) 03/30/25 Details [...] -2.5), or Osteoporosis (T-score <= -2.5). At [facility], T-scores are compared to peak bone density [...] results. IMPRESSION: Interpretation: Normal bone mineral density. Farhan Olmos MD [employer] BD BONE DENSITY DEXA Fin al Result from Last 3 Months or Most Recently Relevant to Health Maintenance Insurance MEDICARE PART A & B [employer] ENHANCE SUPPLEMENT MEDICARE PART A & [place] [address] [place] [address] MEDICARE ENHANCE SUPPLEMENT MEDICARE PART A & B [facility] MEDICARE ENHANCE SUPPLEMENT MEDICARE PART A & B [facility] MEDICARE ENHANCE SUPPLEMENT MEDICARE PART A & B [facility] MEDICARE ENHANCE SUPPLEMENT MEDICARE PART A & B [facility] MEDICARE ENHANCE SUPPLEMENT MEDICARE PART A & B MEDICARE ENHANCE SUPPLEMENT MEDICARE PART A & B [facility] MEDICARE ENHANCE SUPPLEMENT MEDICARE PART A & B [employer] ENHANCE SUPPLEMENT Care Teams Oil Burner Journeyman Relationship Specialty Start Date End Date Maricruz Ybarra MD [address] [place] [address] [place] [phone] PCP - General Family Medicine 07/05/25 Additional Source Comments The information contained in this document represents components of the legal health record. It is not the complete legal health record.[facility]
--- OUTSIDE RECORDS SUMMARY | 2025-07-22 10:57 | XMS_ITS | Encounter Summary ---
Author Organization [facility] Address [address] [place] [address] Phone Care Team Providers Care Food Preparation Supervisor Name Role Phone Jamie Ma MD Primary Care Provider [phone] Maricruz Ybarra MD Primary Care Provider [phone] Reason for Referral * Outpatient Procedure - Closed Specialty Diagnoses / Procedures Referred By Ed li Referred To Contact Diagnoses Paroxysmal atrial fibrillation Procedures MCT (Mobile Cardiac Telemetry) Jim Arzate DO Phone: tel: fax: [email or web address] Referral ID Status Reason Start Date Expiration Date Visits Re quested Visits Authorized [id number] Closed 02/26/2018 02/26/2019 1 1 Encounter Details Date Type Department Care Team (Latest Contact Info) Description 02/26/2018 Ancillary Orders Non-Invasive Cardiology [address] [place] [address] Jim Arzate DO [address] [facility] [address] [place] [address] [email or web address] Paroxysmal atrial fibrillation Social History Tobacco Use Types Packs/Day Years [...] documented as of this encounter Results * MCT (Mobile Cardiac Telemetry) (02/27/2018 10:33 AM EDT) Anatomical Region Laterality Modality Heart Other Narrative 02/27/2018 5:25 PM EDT Mobile cardiac outpatient telemetry: 38 minutes recorded. Baseline rhythm was sinus. All recordings showed sinus rhythm. Impression: Mobile cardiac outpatient telemetry 38 minutes showed sinus rhythm. us Jim Arzate DO CV CARDIAC SERVICES ORDERABLE S Final Result documented in this encounter Visit Diagnoses Diagnosis Paroxysmal atrial fibrillation Atrial fibrillation Paroxysmal atrial fibrillation Atrial fibrillation documented in this encounter Care Teams Food Preparation Supervisor Relationship Specialty Start Date End Date Jamie Ma MD [address] [place] [phone] [email or web address] PCP - General Family Medicine 03/25/14 07/04/25 Maricruz Ybarra MD [address] [place] [address] [place] [phone] PCP - General Family Medicine 07/05/25 documented as of this encounter Additional Source Comments The information contained in this document represents components of the legal health record. It is not the complete legal health record.[facility]
--- OUTSIDE RECORDS SUMMARY | 2025-07-22 10:57 | XMS_ITS | Encounter Summary ---
Author Organization [facility] Address [address] [place] [address] Phone Care Team Providers Care Mortgage Advisor Name Role Phone Jamie Ma MD Primary Care Provider [phone] Maricruz Ybarra MD Primary Care Provider [phone] Encounter Details Date Type Department Care Team (Late st Contact Info) Description 02/26/2018 Ancillary Orders [facility] [address] [place] [address] Jim Arzate, DO [address] [address] [email or web address] Social History Tobacco Use Types Packs/Day Years [...] on filedocumented in this encounter Care Teams Mortgage Advisor Relationship Specialty Start Date End Date Jamie Ma MD [address] [place] [phone] [email or web address] PCP - General Family Medicine 03/25/14 07/04/25 Maricruz Ybarra MD [address] [place] [address] [place] [address] PCP - General Family Medicine 07/05/25 documented as of this encounter Additional Source Comments The information contained in this document represents components of the legal health record. It is not the complete legal health record.[facility]
--- OUTSIDE RECORDS SUMMARY | 2025-07-22 10:57 | XMS_ITS | Encounter Summary ---
Author Organization [facility], Address [address] [place] [address] Phone Care Team Providers Care Experience Designer Name Role Phone Maricruz Ybarra MD Primary Care Provider [phone] Encounter Details Date Type Department Care Team (Late st Contact Info) Description 05/29/2024 Documentation Only [facility], - Elvin Duorn [address] [place] [address] Janice Light [address] [place] [phone] Social History Tobacco Use Types Packs/Day Years [...] on filedocumented in this encounter Care Teams Experience Designer Relationship Specialty Start Date End Date Maricruz Ybarra MD [address] [place] [phone] PCP - General Family Medicine 01/20/22 documented as of this encounter
--- OUTSIDE RECORDS SUMMARY | 2025-07-22 10:57 | XMS_ITS | Encounter Summary ---
Author Organization [facility] Address [address] [facility] [address] [place] [address] Phone Care Team Providers Care Motor Hotel Manager Name Role Phone Jamie Ma MD Primary Care Provider [phone] Maricruz Ybarra MD Primary Care Provider [phone] Encounter Details Date Type Department Care Team (Late st Contact Info) Description 02/26/2018 Ancillary Orders [facility] [address] [place] [address] Jim Arzate, DO [address] [address] [email or web address] Social History Tobacco Use Types Packs/Day Years [...] on filedocumented in this encounter Care Teams Motor Hotel Manager Relationship Specialty Start Date End Date Jamie Ma MD [address] [place] [phone] [email or web address] PCP - General Family Medicine 03/25/14 07/04/25 Maricruz Ybarra MD [address] [place] [address] [place] [phone] PCP - General Family Medicine 07/05/25 documented as of this encounter Additional Source Comments The information contained in this document represents components of the legal health record. It is not the complete legal health record.[facility]
--- OUTSIDE RECORDS SUMMARY | 2025-07-22 10:57 | XMS_ITS | Encounter Summary ---
Author Organization [facility] Address [address] [facility] [address] [place] [address] Phone Care Team Providers Care Narrow Gauge Engineer Name Role Phone Jamie Ma MD Primary Care Provider [phone] Maricruz Ybarra MD Primary Care Provider [phone] Encounter Details Date Type Department Care Team (Latest Contact Info) Description 09/24/2024 Transcribe Orders Virtual Department [address] [place] [address] Farhan Olmos MD [address] [place] [address] [email or web address] Asymptomatic menopausal state (Primary Dx) Social History [...] Primary documented in this encounter Care Teams Narrow Gauge Engineer Relationship Specialty Start Date End Date Jamie Ma MD [address] [place], [place] [address] [phone] [email or web address] PCP - General Family Medicine 03/25/14 07/04/25 Maricruz Ybarra MD [address] [place] [address] [place] [phone] PCP - General Family Medicine 07/05/25 documented as of this encounter Additional Source Comments The information contained in this document represents components of the legal health record. It is not the complete legal health record.[facility]
--- OUTSIDE RECORDS SUMMARY | 2025-07-22 10:57 | XMS_ITS | Encounter Summary ---
Author Organization [facility], Address [address] [place] [address] Phone Care Team Providers Care Harvest Worker Field Crop Name Role Phone Maricruz Ybarra MD Primary Care Provider [phone] Encounter Details Date Type Department Care Team (Late st Contact Info) Description 08/06/2024 Documentation Only [facility], [address] [place] [phone] Isabel Nguyen [address] [place] [phone] Social History Tobacco Use Types Packs/Day Years [...] on filedocumented in this encounter Care Teams Harvest Worker Field Crop Relationship Specialty Start Date End Date Maricruz Ybarra MD [address] [place] [phone] PCP - General Family Medicine 01/20/22 documented as of this encounter
== END 2025-07-22 09:29 | disposition home or self-care (01) ==
LOC: HO.LAB 09:28
PROVIDERS: PCP Family Medicine; Visit Provider Internal Medicine Nephrology
DX: I12.9 Hypertensive chronic kidney disease with stage 1 through stage 4 chronic kidney disease, or unspecified chronic kidney disease (principal); N18.4 Chronic kidney disease, stage 4 (severe)
CPT/HCPCS: 36415; 80051; 82565; 84520; 85025

== ENCOUNTER 2025-07-30 10:55 | Outpatient (AMB) | payer MEDICARE, OTHER, SELFPAY ==
--- NOTE | 2025-07-30 11:28 | HO.NEPHOV_ITS ---
Vital Signs 07/30/25 11:32 Height 5 ft Weight 172 lb 4 oz BMI 33.6 BP 152/60 H Blood Pressure Location Lt brachial Position Sitting Pulse 62 Pulse Source Pulse Oximeter Pulse Oximetry (%) 96 Oxygen Delivery Method Room Air Intake Visit Reasons: 4mon f/u w/labs-Conf Tailing Hand Required: No Accompanied by: Daughter Allergies atorvastatin (From Lipitor) Allergy (Verified 07/30/25 11:32) Unknown lovastatin (From Mevacor) Allergy (Verified 07/30/25 11:32) Unknown Sulfa (Sulfonamide Antibiotics) Allergy (Verified 07/30/25 11:32) Unknown HPI Comments Details: I had the privilege of seeing Signia for follow up for CKD. 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 She had H/O incomplete emptying of her bladder. Her blood pressure control has been fair on current medications but high today. She is grieving from loss of her . Her last renal USS which showed bilateral simple appearing renal cysts with slight increase in size of the cyst on the left. Her recent serum creatinine is stable . She denies CAD, CHF, PAD or known YOLANDA. She does not have any urinary symptoms, worsening edema, nausea, vomiting or diarrhea. There were no other systemic complaints at the time of the office visit. 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 Surgical History H/O thyroidectomy H/O colonoscopy History of knee replacement Family History Mother Malignant tumor of breast Father Heart attack Brother Diabetes Hypertension Lymphoma Social History Alcohol intake: never Patient Tobacco Use Status: Never used Tobacco Review of Systems Const All systems reviewed & are unremarkable except as noted in HPI and below Physical Exam Vital Signs: Last Vital Signs Pulse 62 07/30/25 11:32 BP 152/60 H 07/30/25 11:32 Pulse Ox 96 07/30/25 11:32 Oxygen Delivery Method Room Air 07/30/25 11:32 BMI result Body Mass Index 33.6 Const General: comfortable and no acute distress Orientation/consciousness: patient oriented x3 HEENT Head: Yes normocephalic Mouth: Normal oral and palatal mucosa present Eyes EOM: EOMs intact bilaterally Neck Neck: Yes supple Resp Auscultation: clear to auscultation bilaterally Cardio Jugular venous distension: no JVD Rate: regular rate GI Palpation (GI): Soft to palpation Auscultation: normal bowel sounds General: Yes no CVA tenderness Back/Spine/Pelvis Back: no CVA tenderness Skin General skin exam: no rashes or lesions noted Neuro General: patient oriented x3 and moves all extremities Extrem General: Yes no pedal edema Results Reviewed Nephrology Results: Hgb, (12.0-16.0) 11.7 g/dl L 07/22/25 WBC, (4.8-10.8) 8.8 X10*3/uL 07/22/25 Plt Count, (160-400) 178 X10*3/uL 07/22/25 Sodium, (135-145) 141 mmol/L 07/22/25 Potassium, (3.3-5.1) 4.4 mmol/L 07/22/25 Chloride, (96-108) 104 mmol/L 07/22/25 Carbon Dioxide, (22-29) 30 mmol/L H 07/22/25 BUN, (9-16) 23 mg/dL H 07/22/25 Creatinine, (0.5-1.4) 1.65 mg/dL H 07/22/25 Calcium, (8.4-10.2) 8.9 mg/dL Δ 03/21/25 Phosphorus, (2.7-4.5) 3.6 mg/dL 11/14/24 PTH Intact, (8.7-77.1) < 4.0 pg/mL L 11/14/24 Urine Creatinine 31.49 mg/dL 11/14/24 Protein/Creatinin Ratio TNP 11/14/24 Assessment & Plan Assessment & Plan (1) Chronic kidney disease, stage 4 (severe): Code(s): N18.4 - Chronic kidney disease, stage 4 (severe) Category: Medical (2) Essential (primary) hypertension: Code(s): I10 - Essential (primary) hypertension Category: Medical Plan She had a GFR between 25- 30 mls/minute which has improved now. She has CKD is from hypertension even though she is not sure whether she had kidneys involved from anti phospholipid antibody syndrome. She denies any H/O renal arterial or renal vein thrombosis. She has higher post voidal residual. Her BP needs to be maintained at less than 130/80 mm of Hg. I increased her Amlodipine to 10 mg . She may be a candidate for SGLT2 i in the future. Answered her and her daughters questions. Orders: Orders Uric Acid 6 Months I10 - Essential (primary) hypertension, N18.4 - Chronic kidney disease, stage 4 (severe) Electrolytes 6 Months I10 - Essential (primary) hypertension, N18.4 - Chronic kidney disease, stage 4 (severe) Calcium 6 Months I10 - Essential (primary) hypertension, N18.4 - Chronic kidney disease, stage 4 (severe) Blood Urea Nitrogen 6 Months I10 - Essential (primary) hypertension, N18.4 - Chronic kidney disease, stage 4 (severe) Vitamin D 25-OH Total 6 Months I10 - Essential (primary) hypertension, N18.4 - Chronic kidney disease, stage 4 (severe) Phosphorus 6 Months I10 - Essential (primary) hypertension, N18.4 - Chronic kidney disease, stage 4 (severe) Parathyroid Hormone Intact 6 Months I10 - Essential (primary) hypertension, N18.4 - Chronic kidney disease, stage 4 (severe) Creatinine 6 Months I10 - Essential (primary) hypertension, N18.4 - Chronic kidney disease, stage 4 (severe) Medications: New amlodipine 10 mg PO DAILY 90 tabs 3RF Coding Level of Care Code Est Pt Level 4 (94036) Diagnoses Chronic kidney disease, stage 4 (severe) N18.4 Essential (primary) hypertension I10
[2025-07-30 11:32] VITALS: BP 152/60; PULSE 62; O2SAT 96; BMI 33.6
== END 2025-07-30 12:03 | disposition home or self-care (01) ==
LOC: HO.HKA 10:55
PROVIDERS: PCP Family Medicine; Visit Provider Internal Medicine Nephrology
DX: I12.9 Hypertensive chronic kidney disease with stage 1 through stage 4 chronic kidney disease, or unspecified chronic kidney disease (principal); N18.4 Chronic kidney disease, stage 4 (severe)
CPT/HCPCS: 99214

== ENCOUNTER → 2025-07-30 10:55 | Outpatient (BNVA) | payer MEDICARE, OTHER, SELFPAY | PROVIDERS: PCP Family Medicine; Visit Provider Internal Medicine Nephrology | DX: I12.9 Hypertensive chronic kidney disease with stage 1 through stage 4 chronic kidney disease, or unspecified chronic kidney disease (principal); N18.4 Chronic kidney disease, stage 4 (severe) | CPT/HCPCS: 99212 ==